=== PATIENT | male | born 1960 | race Caucasian/White ===

== ENCOUNTER 2016-09-21 01:54 | Emergency (ER) | payer MEDICARE, BC ==
[2016-09-21] MEDS ORDERED: Lidocaine 1% 20 ML MDV INJECT ONE (02:00)
--- NOTE | 2016-09-21 02:39 | EDM.PDOC ---
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 No Loc. No other acute medical issues. Onset: Today Onset Date: 09/21/16 Onset Time: 01:15 Duration: Hour(s): Location: Reports: Face Quality: Reports: Ache Severity: Mild Improves with: Reports: Rest Worsens with: Reports: Movement Context: Reports: Trauma Associated Symptoms: Reports: No Other Symptoms R parietal head Pain Score (Numeric/FACES): 4 - Related Data Allergies Allergy/AdvReac Type Severity Reaction Status Date / Time No Known Allergies Allergy Verified 04/13/16 15:13 Home Meds: Home Meds Albuterol Sulfate [Proair Hfa] 8.5 gm IH ASDIRECTED 05/22/13 [History] Celecoxib [CeleBREX] 200 mg PO BID 05/22/13 [History] Cetirizine HCl [Zyrtec] 10 mg PO DAILY 05/22/13 [History] Cholecalciferol (Vitamin D3) [Vitamin D3] 2,000 unit PO DAILY 05/22/13 [History] Cyclobenzaprine HCl 10 mg PO TID PRN 05/22/13 [History] Fluticasone Propionate [Flonase] 2 sprays NS ASDIRECTED 05/22/13 [History] Furosemide [Lasix] 20 mg PO ASDIRECTED PRN 05/22/13 [History] Hydrocodone/Acetaminophen [Lortab 10-500] 1 each PO BID PRN 05/22/13 [History] Multivitamin [Multivitamins] 1 cap PO DAILY 05/22/13 [History] Omeprazole [Prilosec] 20 mg PO DAILY 05/22/13 [History] Oxybutynin [Oxybutynin ER] 5 mg PO BID 05/22/13 [History] PARoxetine [Paxil] 60 mg PO DAILY 05/22/13 [History] Potassium Chloride 10 meq PO DAILY 05/22/13 [History] Pramipexole [Mirapex] 1 mg PO BID 05/22/13 [History] Simvastatin [Zocor] 20 mg PO BEDTIME 05/22/13 [History] Tamsulosin [Flomax] 0.4 mg PO ASDIRECTED 05/22/13 [History] clonazePAM [Klonopin] 0.5 mg PO DAILY 05/22/13 [History] cycloSPORINE [Restasis] 1 each OP DAILY 05/22/13 [History] Meloxicam [Mobic] 15 mg PO DAILY 05/25/13 [History] hydrOXYzine HCl [hydrOXYzine] 50 mg PO BID 05/25/13 [History] Gabapentin [Neurontin] 300 mg PO TID 02/14/16 [History] metFORMIN [Glucophage XR] 500 mg PO BIDMEALS 02/14/16 [History] Doxepin [SINEquan] 50 mg PO BEDTIME 04/13/16 [History] Past Medical History HEENT History: Reports: Allergic Rhinitis, Hard of Hearing, Impaired Vision, Other (See Below) Cardiovascular History: Reports: High Cholesterol Respiratory History: Reports: Sleep Apnea Other Respiratory History: MACHINE NOT WITH Gastrointestinal History: Reports: Irritable Bowel Syndrome Genitourinary History: Reports: Renal Calculus, Other (See Below) Other Genitourinary History: STATES URINARY FREQUENCY, BUT NOT DX WITH PROSTATE PROBLEMS. MEDICATES FOR THIS. 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 LOSS. Hematologic History: Reports: None Oncologic (Cancer) History: Reports: None Dermatologic History: Reports: Venous Stasis Dermatitis - Infectious Disease History Infectious Disease History: Reports: Chicken Pox, Measles, Mumps - Past Surgical History Female Surgical History: Male Surgical History: Social & Family History - Family History Family Medical History: Noncontributory - Tobacco Use Smoking Status *Q: Never Smoker Second Hand Smoke Exposure: No - Alcohol Use Days Per Week of Alcohol Use: 0 - Recreational Drug Use Recreational Drug Use: No ED ROS GENERAL - Review of Systems Review Of Systems: See Below Constitutional: Reports: No Symptoms HEENT: Reports: No Symptoms Respiratory: Reports: No Symptoms Cardiovascular: Reports: No Symptoms Endocrine: Reports: No Symptoms GI/Abdominal: Reports: No Symptoms : Reports: No Symptoms Musculoskeletal: Reports: No Symptoms Skin: Reports: Wound Neurological: Reports: No Symptoms Psychiatric: Reports: No Symptoms Hematologic/Lymphatic: Reports: No Symptoms Immunologic: Reports: No Symptoms ED EXAM, SKIN/RASH Exam: See Below Exam Limited By: No Limitations General Appearance: Alert, WD/WN, Mild Distress Eye Exam: Bilateral Eye: Normal Inspection Ears: Normal External Exam, Normal Canal Nose: Normal Inspection, Normal Mucosa Throat/Mouth: Normal Inspection, Normal Lips Head: Atraumatic, Normocephalic Neck: Normal Inspection, Supple Respiratory/Chest: No Respiratory Distress Cardiovascular: Normal Peripheral Pulses, Regular Rate, Rhythm Peripheral Pulses: 2+: Radial (L), Radial (R) GI/Abdominal: Normal Bowel Sounds, Soft, Non-Tender (Male) Exam: Deferred Rectal (Males) Exam: Deferred Back Exam: Normal Inspection Extremities: Normal Inspection, Normal Range of Motion, Normal Capillary Refill Neurological: Alert, Oriented, CN II-XII Intact, Normal Cognition Psychiatric: Normal Affect, Normal Mood Skin: Warm, Dry, Normal Color, Other (LAC r forehead) Associated features: Warmth Lymphatic: No Adenopathy ED SKIN PROCEDURES - Laceration/Wound Repair Right Forehead Appearance: Subcutaneous, Linear, Clean Distal NVT: Neuro & Vascular Intact, No Tendon Injury Anesthetic Type: Local Local Anesthesia - Lidocaine (Xylocaine): 1% Plain Local Anesthetic Volume: 2cc Skin Prep: Providone-Iodine (Betadine) Saline Irrigation (cc's): 5 Suture Size: 4-0 # of Sutures: 3 Repaired with: Other (4/0 ethilon) Tetanus Status Addressed: Other (UTD) Complications: No Course - Vital Signs Text/Narrative:: 56 years old w m 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 No Loc. No other acute medical issues. PE: 2 cm LAC right ant forehead, no active bleed Procedure: Please see note above. Impression: Head laceration Tx: Wound repair, neosporine, Ice Reexam: Improved Plan: Home with instructions. Last Recorded V/S: Last Vital Signs Temp 36.7 C 09/21/16 01:54 Pulse 86 09/21/16 01:54 Resp 18 09/21/16 01:54 BP 143/74 H 09/21/16 01:54 Pulse Ox 98 09/21/16 01:54 Departure - Departure Time of Disposition: 02:34 Disposition: Home, Self-Care 01 Condition: Good Clinical Impression: Laceration - Discharge Information Instructions: Head Injury, Adult, [id number], Sutured Wound Care, Easy-to- Read Referrals: Brittney Wong, SOCIAL SECURITY BENEFITS INTERVIEWER [Primary Care Provider] - Forms: ED Department Discharge Additional Instructions: wound check in 2-3 days, neosporine ointment to wound twice daily for 5 days, Suture removal in 7 - 10 days, please come back to the ed if your symptoms get worse acutely.
[2016-09-21 03:14] VITALS: BP 139/74
== END 2016-09-21 02:54 | disposition home or self-care (01) ==
LOC: FB.ED 01:54
DX: S01.81XA Laceration without foreign body of other part of head, initial encounter (principal); F41.9 Anxiety disorder, unspecified; F32.9 Major depressive disorder, single episode, unspecified; M19.90 Unspecified osteoarthritis, unspecified site; E78.00 Pure hypercholesterolemia, unspecified; E66.9 Obesity, unspecified; Z68.41 Body mass index [BMI] 40.0-44.9, adult; Z79.899 Other long term (current) drug therapy; Z79.84 Long term (current) use of oral hypoglycemic drugs; Z87.442 Personal history of urinary calculi; W01.190A Fall on same level from slipping, tripping and stumbling with subsequent striking against furniture, initial encounter
CPT/HCPCS: 12011; 99282; 99283; A4217; 12001

== ENCOUNTER 2018-04-28 19:17 | Emergency (ER) | payer MEDICARE, MEDICAID ==
[2018-04-28] MEDS ORDERED: Ondansetron 4 MG/2 ML SDV IVPUSH ONE (19:26)
[2018-04-28] MEDS ORDERED: Aspirin 81 MG Tab.Chew PO ONE (19:28)
[2018-04-28] MEDS ORDERED: Sodium Chloride 0.9% 10 ML Syringe FLUSH PRN (19:42)
--- NOTE | 2018-04-28 19:44 | EDM.PDOC ---
ED HPI GENERAL MEDICAL PROBLEM - General Stated Complaint: CHEST PAIN Time Seen by Provider: 04/28/18 19:24 Source of Information: Reports: Patient, Family History Limitations: Reports: No Limitations - History of Present Illness INITIAL COMMENTS - FREE TEXT/NARRATIVE: 58 y.o.w.m with multiple medical issues, including HTN, came to the ed due to Chest pain off on in the past few days. No F/C,No trauma, No N./V/D or any other acute med issues. BP 123/56 RR 24 Puls oc 92% on RA, temp 38.1 Pulse 94 Onset Date: 04/25/18 Onset Time: 07:00 Duration: Day(s):, Getting Worse, Intermittent Location: Reports: Chest Quality: Reports: Ache, Dull, Same as Previous Episode Severity: Moderate Improves with: Reports: Rest Worsens with: Reports: Movement Context: Reports: Sick Contact Associated Symptoms: Reports: Chest Pain chest Pain Score (Numeric/FACES): 6 - Related Data Allergies Allergy/AdvReac Type Severity Reaction Status Date / Time No Known Allergies Allergy Verified 04/28/18 19:49 Home Meds: Home Meds Cetirizine HCl [Zyrtec] 10 mg PO DAILY 05/22/13 [History] Cholecalciferol (Vitamin D3) [Vitamin D3] 2,000 unit PO DAILY 05/22/13 [History] Cyclobenzaprine HCl 10 mg PO BEDTIME 05/22/13 [History] Multivitamin [Multivitamins] 1 cap PO DAILY 05/22/13 [History] Omeprazole [Prilosec] 20 mg PO DAILY 05/22/13 [History] Potassium Chloride 10 meq PO DAILY 05/22/13 [History] Pramipexole [Mirapex] 1 mg PO DAILY 05/22/13 [History] Simvastatin [Zocor] 20 mg PO BEDTIME 05/22/13 [History] cycloSPORINE [Restasis] 1 each OP BID 05/22/13 [History] Gabapentin [Neurontin] 600 mg PO QID 02/14/16 [History] metFORMIN [Glucophage XR] 1,000 mg PO BIDMEALS 02/14/16 [History] Bumetanide [Bumex] 1 mg PO DAILY 09/21/16 [History] Acetaminophen [Acetaminophen Extra Strength] 1,000 mg PO TID PRN 04/28/18 [ History] Ciprofloxacin HCl [Cipro] 500 mg PO BID #20 tablet 04/28/18 [Rx] Diclofenac Sodium [Voltaren] 1 applic TOP QID PRN 04/28/18 [History] PARoxetine [Paxil] 40 mg PO DAILY 04/28/18 [History] Phentermine HCl [Adipex-P] 37.5 mg PO DAILY 04/28/18 [History] Past Medical History HEENT History: Reports: Allergic Rhinitis, Hard of Hearing, Impaired Vision, Other (See Below) Cardiovascular History: Reports: High Cholesterol Respiratory History: Reports: Sleep Apnea Other Respiratory History: MACHINE NOT WITH Gastrointestinal History: Reports: Irritable Bowel Syndrome Genitourinary History: Reports: Renal Calculus, Other (See Below) Other Genitourinary History: STATES URINARY FREQUENCY, BUT NOT DX WITH PROSTATE PROBLEMS. MEDICATES FOR THIS. STATES PASSED STONES WITHOUT SURGERY TIE IN HAND History: Reports: None Musculoskeletal History: Reports: Arthritis, Back Pain, Chronic Psychiatric History: Reports: Anxiety, Depression Endocrine/Metabolic History: Reports: Obesity/BMI 30+ Other Endocrine/Metabolic History: DENIES HAVING DIABETES, BUT USES METFORMIN FOR WT. LOSS. Hematologic History: Reports: None Oncologic (Cancer) History: Reports: None Dermatologic History: Reports: Venous Stasis Dermatitis - Infectious Disease History Infectious Disease History: Reports: Chicken Pox, Measles, Mumps - Past Surgical History Head Surgeries/Procedures: Reports: None Social & Family History - Family History Family Medical History: Noncontributory - Caffeine Use Caffeine Use: Reports: None ED ROS GENERAL - Review of Systems Review Of Systems: See Below Constitutional: Reports: No Symptoms HEENT: Reports: No Symptoms Respiratory: Reports: No Symptoms Cardiovascular: Reports: Chest Pain Endocrine: Reports: No Symptoms GI/Abdominal: Reports: No Symptoms : Reports: Dysuria Musculoskeletal: Reports: No Symptoms Skin: Reports: No Symptoms Neurological: Reports: No Symptoms Psychiatric: Reports: No Symptoms Hematologic/Lymphatic: Reports: No Symptoms Immunologic: Reports: No Symptoms ED EXAM, GENERAL - Physical Exam Exam: See Below Exam Limited By: No Limitations General Appearance: Alert, WD/WN, Mild Distress, Moderate Distress, Obese Eye Exam: Bilateral Eye: Normal Inspection Ears: Normal External Exam Ear Exam: Bilateral Ear: Auricle Normal Nose: Normal Inspection, Normal Mucosa, No Blood Throat/Mouth: Normal Lips, Normal Voice, No Airway Compromise Head: Atraumatic, Normocephalic Neck: Normal Inspection, Supple, Non-Tender, Full Range of Motion Respiratory/Chest: No Respiratory Distress, Lungs Clear, Normal Breath Sounds, Chest Non-Tender Cardiovascular: Normal Peripheral Pulses, Regular Rate, Rhythm, No Edema, No Gallop Peripheral Pulses: 1+: Brachial (L) GI/Abdominal: Normal Bowel Sounds, Soft, Non-Tender, No Organomegaly, No Abnormal Bruit, No Mass, Pelvis Stable (Male) Exam: Deferred Rectal (Males) Exam: Deferred Back Exam: Normal Inspection, Full Range of Motion Extremities: Normal Inspection, Normal Range of Motion, Non-Tender Neurological: Alert, Oriented, CN II-XII Intact, Normal Cognition, Normal Gait Psychiatric: Normal Affect, Normal Mood Skin Exam: Warm, Dry, Intact, Normal Color, No Rash Lymphatic: No Adenopathy EKG INTERPRETATION EKG Date: 04/28/18 Time: 19:25 Rhythm: NSR Rate (Beats/Min): 93 Hunt: Normal P-Wave: Present QRS: Normal ST-T: Normal QT: Normal EKG Interpretation Comments: MI 204 prolonged Course - Vital Signs Text/Narrative:: 58 y.o.w.m with multiple medical issues, including HTN, came to the ed due to Chest pain off on in the past few days. No F/C,No trauma, No N./V/D or any other acute med issues. BP 123/56 RR 24 Puls oc 92% on RA, temp 38.1 Pulse 94 PE: Obese 58 y.o.w.m with chest pain Imaging: CXR: NAD. Angio CT: NO PE, suboptimal study. Labs: CBC nl BMP Nl except D Dimer was O.74 Impression: Atypical chest pain, UTI, Tx: ASA, Cipro, Zofran Reexam: Pt is pain free. Pt was given th e option toe be admitted. He requested to be discharged with F/U in am with his PMD Plan: D/C with instructions Last Recorded V/S: Last Vital Signs Temp 38.1 C 04/28/18 19:20 Pulse Resp 26 H 04/28/18 22:00 BP 125/61 04/28/18 22:00 Pulse Ox 95 04/28/18 22:00 - Orders/Labs/Meds Orders: Active Orders 24 hr Category Date Time Status EKG Documentation Completion [RC] ASDIRECTED Care 04/28/18 20:17 Active Ang Chest [CT] Stat Exams 04/28/18 20:25 Taken Chest 1V Frontal [CR] Stat Exams 04/28/18 19:26 Taken Peripheral IV Insertion Adult [OM.PC] Routine Oth 04/28/18 19:30 Ordered EKG 12 Lead [EK] Routine Ther 04/28/18 20:17 Ordered Labs: Laboratory Tests 04/28/18 04/28/18 04/28/18 Range/Units 19:35 19:35 19:35 WBC 8.8 (4.5-12.0) X10-3/uL RBC 4.43 (4.30-5.75) x10(6)uL Hgb 13.8 (11.5-15.5) g/dL Hct 41.7 (30.0-51.3) % MCV 94.2 (80-96) fL MCH 31.2 (27.7-33.6) pg MCHC 33.1 (32.2-35.4) g/dL RDW 14.7 (11.5-15.5) % Plt Count 264 (125-369) X10(3)uL MPV 8.7 (7.4-10.4) fL Neut % (Auto) 80.4 (46-82) % Lymph % (Auto) 11.5 L (13-37) % [place] % (Auto) 6.7 (4-12) % Eos % (Auto) 1 (1.0-5.0) % Baso % (Auto) 1 (0-2) % Neut # (Auto) 7.0 (1.6-8.3) # Lymph # (Auto) 1.0 (0.6-5.0) # [place] # (Auto) 0.6 (0.0-1.3) # Eos # (Auto) 0.1 (0.0-0.8) # Baso # (Auto) 0.1 (0.0-0.2) # PT (8.7-11.1) INR (0.89-1.13) D-Dimer, Quantitative (0.0-0.59) mg/LFEU Sodium 138 (135-145) mmol/L Potassium 4.0 (3.5-5.3) mmol/L Chloride 102 (100-110) mmol/L Carbon Dioxide 31 (21-32) mmol/L BUN 18 (7-18) mg/dL Creatinine 1.2 (0.70-1.30) mg/dL Est Cr Clr Drug Dosing TNP Estimated GFR (MDRD) > 60 (>60) BUN/Creatinine Ratio 15.0 (9-20) Glucose 114 (80-116) mg/dL Calcium 9.6 (8.6-10.2) mg/dL Total Bilirubin (0.1-1.3) mg/dL Direct Bilirubin (0.10-0.20) mg/dL AST (5-25) IU/L ALT (12-36) U/L Alkaline Phosphatase (56-112) IU/L Troponin I < 0.017 L (<0.017-0.056) ng/mL Total Protein (6.0-8.0) g/dL Albumin (3.5-5.2) g/dL Amylase (25-115) U/L Urine Color (YELLOW) Urine Appearance (CLEAR) Urine pH (5.0-6.5) Ur Specific [place] (1.010-1.025) Urine Protein (NEGATIVE) mg/dL Urine Glucose (UA) (NEGATIVE) mg/dL Urine Ketones (NEGATIVE) mg/dL Urine Occult Blood (NEGATIVE) Urine Nitrite (NEGATIVE) Urine Bilirubin (NEGATIVE) Urine Urobilinogen (NEGATIVE) mg/dL Ur Leukocyte Esterase (NEGATIVE) Urine RBC (0) Urine WBC (0) Ur Squamous Epith Cells (NS,R,O) Urine Bacteria (NS) 04/28/18 04/28/18 04/28/18 Range/Units 19:35 19:35 20:16 WBC (4.5-12.0) X10-3/uL RBC (4.30-5.75) x10(6)uL Hgb (11.5-15.5) g/dL Hct (30.0-51.3) % MCV (80-96) fL MCH (27.7-33.6) pg MCHC (32.2-35.4) g/dL RDW (11.5-15.5) % Plt Count (125-369) X10(3)uL MPV (7.4-10.4) fL Neut % (Auto) (46-82) % Lymph % (Auto) (13-37) % [place] % (Auto) (4-12) % Eos % (Auto) (1.0-5.0) % Baso % (Auto) (0-2) % Neut # (Auto) (1.6-8.3) # Lymph # (Auto) (0.6-5.0) # [place] # (Auto) (0.0-1.3) # Eos # (Auto) (0.0-0.8) # Baso # (Auto) (0.0-0.2) # PT 9.6 (8.7-11.1) INR 0.99 (0.89-1.13) D-Dimer, Quantitative 0.74 H (0.0-0.59) mg/LFEU Sodium (135-145) mmol/L Potassium (3.5-5.3) mmol/L Chloride (100-110) mmol/L Carbon Dioxide (21-32) mmol/L BUN (7-18) mg/dL Creatinine (0.70-1.30) mg/dL Est Cr Clr Drug Dosing Estimated GFR (MDRD) (>60) BUN/Creatinine Ratio (9-20) Glucose (80-116) mg/dL Calcium (8.6-10.2) mg/dL Total Bilirubin 1.1 (0.1-1.3) mg/dL Direct Bilirubin 0.41 H (0.10-0.20) mg/dL AST 23 (5-25) IU/L ALT 31 (12-36) U/L Alkaline Phosphatase 101 (56-112) IU/L Troponin I (<0.017-0.056) ng/mL Total Protein 8.2 H (6.0-8.0) g/dL Albumin 3.4 L (3.5-5.2) g/dL Amylase 35 (25-115) U/L Urine Color Yellow (YELLOW) Urine Appearance Cloudy (CLEAR) Urine pH 7.0 H (5.0-6.5) Ur Specific [place] 1.010 (1.010-1.025) Urine Protein Negative (NEGATIVE) mg/dL Urine Glucose (UA) Normal (NEGATIVE) mg/dL Urine Ketones Negative (NEGATIVE) mg/dL Urine Occult Blood Negative (NEGATIVE) Urine Nitrite Positive H (NEGATIVE) Urine Bilirubin Small H (NEGATIVE) Urine Urobilinogen >=12 H (NEGATIVE) mg/dL Ur Leukocyte Esterase Large H (NEGATIVE) Urine RBC 10-20 H (0) Urine WBC 30-40 H (0) Ur Squamous Epith Cells Occasional (NS,R,O) Urine Bacteria Many H (NS) Meds: Medications Discontinued Medications Generic Name Dose Route Start Last Admin Trade Name Freq PRN Reason Stop Dose Admin Aspirin 324 mg 04/28/18 19:28 04/28/18 19:35 Aspirin PO 04/28/18 19:29 324 mg ONETIME ONE Administration Ciprofloxacin 500 mg 04/28/18 22:26 04/28/18 22:32 Ciprofloxacin Hcl PO 04/28/18 22:27 500 mg ONETIME ONE Administration Iopamidol 100 ml 04/28/18 21:11 04/28/18 21:30 Isovue-370 (76%) IV 04/28/18 21:12 83 ml . DIRECTED ONE Administration Ondansetron HCl 8 mg 04/28/18 19:26 04/28/18 19:42 Zofran IVPUSH 04/28/18 19:27 8 mg ONETIME ONE Administration Sodium Chloride 10 ml 04/28/18 19:42 Saline Flush FLUSH ASDIRECTED PRN Keep Vein Open Departure - Departure Time of Disposition: 22:41 Disposition: Home, Self-Care 01 Condition: Good Clinical Impression: Atypical chest pain, UTI (urinary tract infection) Prescriptions: Ciprofloxacin HCl [Cipro] 500 mg PO BID #20 tablet Instructions: Urinary Tract Infection, Adult Referrals: Brittney Wong, OUTDOOR LANDSCAPE ARCHITECT [Primary Care Provider] - Forms: ED Department Discharge, ED Return to Work/School Form Additional Instructions: Please take Aspirin daily, please f/u with your Primary care doctor in am, come back if your symptoms get worse acutely - My Orders Last 24 Hours: My Active Orders 04/28/18 19:26 Chest 1V Frontal [CR] Stat 04/28/18 19:30 Peripheral IV Insertion Adult [OM.PC] Routine 04/28/18 20:17 EKG Documentation Completion [RC] ASDIRECTED EKG 12 Lead [EK] Routine 04/28/18 20:25 Ang Chest [CT] Stat - Assessment/Plan Last 24 Hours: My Active Orders 04/28/18 19:26 Chest 1V Frontal [CR] Stat 04/28/18 19:30 Peripheral IV Insertion Adult [OM.PC] Routine 04/28/18 20:17 EKG Documentation Completion [RC] ASDIRECTED EKG 12 Lead [EK] Routine 04/28/18 20:25 Ang Chest [CT] Stat
[2018-04-28] MEDS ORDERED: Iopamidol 755 Mg/ML 100 ML Bottle IV ONE (21:11)
[2018-04-28] MEDS ORDERED: Ciprofloxacin 500 MG Tab PO ONE (22:26)
[2018-04-28 23:37] VITALS: BP 125/61
--- NOTE | 2018-04-29 11:45 | CR ---
INDICATION: Chest pain. CHEST: An AP portable upright view of the chest was obtained 04/28/18 and compared with a internal revenue service agent view from CT of the chest of 08/24/09. Overlying EKG leads are noted. The aorta is slightly tortuous. The heart appears prominent but is not grossly enlarged. A definite active infiltrate or effusion was not identified. However, pulmonary vasculature appears slightly prominent in the upper lung ponce, raising question of pulmonary vascular congestion. This should be correlate clinically, as fluid overload, renal failure, or acute myocardial event could be present. There is evidence of exogenous obesity. IMPRESSION: 1. No definite acute process but difficult to exclude pulmonary vascular congestion. 2. Minimal ASD aorta. 3. Exogenous obesity. MTDD
== END 2018-04-28 22:40 | disposition home or self-care (01) ==
LOC: FB.ED 19:17
DX: R07.89 Other chest pain (principal); N39.0 Urinary tract infection, site not specified; E78.00 Pure hypercholesterolemia, unspecified; F41.9 Anxiety disorder, unspecified; F32.9 Major depressive disorder, single episode, unspecified; Z79.899 Other long term (current) drug therapy
CPT/HCPCS: 36415; 71045; 71275; 80048; 80076; 81001; 82150; 84484; 85025; 85379; 85610; 93005; 93010; 99285; A9270; J2405; Q9967

== ENCOUNTER 2018-09-15 18:14 | Emergency (ER) | payer MEDICARE, MEDICAID ==
[2018-09-15] MEDS ORDERED: Diphtheria,Pertussis(Acell),Tetanus Vaccine 0.5 ML SDV IM ONE (18:51)
--- NOTE | 2018-09-15 19:01 | EDM.PDOC ---
ED HPI GENERAL MEDICAL PROBLEM - General Chief Complaint: Lower Extremity Injury/Pain Stated Complaint: PUNCTURED FOOT W/NAIL Time Seen by Provider: 09/15/18 18:30 Source of Information: Reports: Patient History Limitations: Reports: No Limitations - History of Present Illness INITIAL COMMENTS - FREE TEXT/NARRATIVE: 58-year-old male who and been cutting his grass and the weeds around his yard and was walking around the edge of the yard and hit his left lateral lower leg against a nail causing an injury to his left lateral lower leg. He reports that there was bleeding from the wound that he found difficult to control. There was very minimal pain in the area. He reports a mild stinging that he rates as a 1-2 /10. This occurred approximate 6 PM tonight and he was brought here from home via private vehicle. The bleeding has been controlled with direct pressure. There were no other injuries. He is having no problems ambulating. There are no other associated signs or symptoms. There are no other modifying factors. 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) (Nothing) - Related Data Allergies Allergy/AdvReac Type Severity Reaction Status Date / Time No Known Allergies Allergy Verified 09/15/18 18:39 Home Meds: Home Meds Cetirizine HCl [Zyrtec] 10 mg PO DAILY 05/22/13 [History] Cholecalciferol (Vitamin D3) [Vitamin D3] 2,000 unit PO DAILY 05/22/13 [History] Cyclobenzaprine HCl 10 mg PO BEDTIME 05/22/13 [History] Multivitamin [Multivitamins] 1 cap PO DAILY 05/22/13 [History] Omeprazole [Prilosec] 20 mg PO DAILY 05/22/13 [History] Potassium Chloride 10 meq PO DAILY 05/22/13 [History] Pramipexole [Mirapex] 1 mg PO DAILY 05/22/13 [History] Simvastatin [Zocor] 20 mg PO BEDTIME 05/22/13 [History] cycloSPORINE [Restasis] 1 each OP BID 05/22/13 [History] Gabapentin [Neurontin] 600 mg PO QID 02/14/16 [History] metFORMIN [Glucophage XR] 1,000 mg PO BIDMEALS 02/14/16 [History] Bumetanide [Bumex] 1 mg PO DAILY 09/21/16 [History] Acetaminophen [Acetaminophen Extra Strength] 1,000 mg PO TID PRN 04/28/18 [ History] Ciprofloxacin HCl [Cipro] 500 mg PO BID #20 tablet 04/28/18 [Rx] Diclofenac Sodium [Voltaren] 1 applic TOP QID PRN 04/28/18 [History] PARoxetine [Paxil] 40 mg PO DAILY 04/28/18 [History] Phentermine HCl [Adipex-P] 37.5 mg PO DAILY 04/28/18 [History] Past Medical History HEENT History: Reports: Allergic Rhinitis, Hard of Hearing, Impaired Vision Cardiovascular History: Reports: High Cholesterol Respiratory History: Reports: Sleep Apnea Gastrointestinal History: Reports: Irritable Bowel Syndrome Genitourinary History: Reports: Renal Calculus Musculoskeletal History: Reports: Arthritis, Back Pain, Chronic Psychiatric History: Reports: Anxiety, Depression Endocrine/Metabolic History: Reports: Obesity/BMI 30+ Dermatologic History: Reports: Venous Stasis Dermatitis - Infectious Disease History Infectious Disease History: Reports: Chicken Pox, Measles, Mumps - Past Surgical History GI Surgical History: Reports: Cholecystectomy, Hernia Repair/Other Neurological Surgical History: Reports: Lumbar Spine Musculoskeletal Surgical History: Reports: Arthroscopic Knee (Left knee arthroscopy 2), Carpal Tunnel (Bilateral carpal tunnel releases), Other (See Below) (Right foot surgery 2) Social & Family History - Tobacco Use Smoking Status *Q: Never Smoker - Caffeine Use Caffeine Use: Reports: Soda - Alcohol Use Alcohol Use History: Yes Alcohol Use Frequency: Weekly - Recreational Drug Use Recreational Drug Use: No - Living Situation & Occupation Occupation: Employed (Works at the [employer].) Social History Comment: He is here with his children. Review of Systems - Review of Systems Review Of Systems: See Below Constitutional: Reports: No Symptoms Eyes: Reports: No Symptoms Ears: Reports: No Symptoms Nose: Reports: No Symptoms Mouth/Throat: Reports: No Symptoms Respiratory: Reports: No Symptoms Cardiovascular: Reports: No Symptoms GI/Abdominal: Reports: No Symptoms Genitourinary: Reports: No Symptoms Musculoskeletal: Reports: Other (Leg swelling that is chronic and symmetric) Skin: Reports: Wound (Abrasion and scratch on left lateral leg), Other (His last tetanus immunization was in 2010, so he is not up-to-date and will be given one today.) Neurological: Reports: No Symptoms ED EXAM, GENERAL - Physical Exam Exam: See Below Exam Limited By: No Limitations General Appearance: Alert, WD/WN, Anxious, Mild Distress Eye Exam: Bilateral Eye: EOMI, Normal Inspection, PERRL Ears: Normal External Exam Ear Exam: Bilateral Ear: Auricle Normal Nose: Normal Inspection, Normal Mucosa, No Blood Throat/Mouth: Normal Inspection, Normal Oropharynx, Normal Voice, No Airway Compromise Head: Atraumatic, Normocephalic Neck: Normal Inspection, Supple, Non-Tender, Full Range of Motion Respiratory/Chest: No Respiratory Distress, Lungs Clear, Normal Breath Sounds, No Accessory Muscle Use, Chest Non-Tender Cardiovascular: Normal Peripheral Pulses, Regular Rate, Rhythm, No JVD Peripheral Pulses: 2+: Radial (L), Radial (R), Dorsalis Pedis (L), Dorsalis Pedis (R) GI/Abdominal: Normal Bowel Sounds, Soft, Non-Tender, No Mass Back Exam: Normal Inspection Extremities: Normal Range of Motion, Non-Tender, Normal Capillary Refill, Other (Mild edema bilaterally, the patient reports this is chronic) Neurological: Alert, Oriented, CN II-XII Intact, Normal Cognition, No Motor/ Sensory Deficits Psychiatric: Anxious Skin Exam: Warm, Dry, Normal Color, No Rash, Wound/Incision (Superficial scratch /abrasion to left lateral leg that is 7 cm in length. Nothing suturable.) Course - Vital Signs Last Recorded V/S: Last Vital Signs Temp 36.6 C 09/15/18 19:13 Pulse 86 09/15/18 19:13 Resp 15 09/15/18 19:13 BP 122/70 09/15/18 19:13 Pulse Ox 95 09/15/18 19:13 - Orders/Labs/Meds Orders: Active Orders 24 hr Category Date Time Status Vaccines to be Administered [RC] PER UNIT ROUTINE Care 09/15/18 18:53 Active Meds: Medications Discontinued Medications Generic Name Dose Route Start Last Admin Trade Name Freq PRN Reason Stop Dose Admin Diphtheria/Tetanus/Acell Pertussis 0.5 ml 09/15/18 18:51 09/15/18 18:59 Adacel IM 09/15/18 18:52 0.5 ml .ONCE ONE Administration - Re-Assessments/Exams Free Text/Narrative Re-Assessment/Exam: 09/15/18 18:50: The patient's wound was nonbleeding at presentation to the emergency department. It was cleaned and dressed by the nursing staff. He will need to shower and wash the wound again when he gets home and then apply bacitracin and a dressing to the wound. I have given him 2 days off of work so that he should stay at home and to stay off of his left leg as much as possible with the left leg elevated. Departure - Departure Time of Disposition: 19:00 Disposition: Home, Self-Care 01 Condition: Good (Stable) Clinical Impression: Abrasion, left lower leg, initial encounter - Discharge Information Instructions: Abrasion, [id number] Forms: ED Department Discharge, ED Return to Work/School Form Additional Instructions: Clean the wound on your leg with soap and water and apply bacitracin and a dressing until the wound has scabbed over. Try to off of your leg for the next few days with your left leg elevated higher than your heart level often. No work for the next 2 days. Back to the emergency department for marked increase in pain, redness, increasing swelling or any other concerning sign or symptom. You were given a Tdap Immunization today to bring your tetanus immunization status up-to-date. - My Orders Last 24 Hours: My Active Orders 09/15/18 18:53 Vaccines to be Administered [RC] PER UNIT ROUTINE - Assessment/Plan Last 24 Hours: My Active Orders 09/15/18 18:53 Vaccines to be Administered [RC] PER UNIT ROUTINE
[2018-09-15 19:14] VITALS: BP 122/70
== END 2018-09-15 19:15 | disposition home or self-care (01) ==
LOC: FB.ED 18:14
DX: S80.812A Abrasion, left lower leg, initial encounter (principal); E78.00 Pure hypercholesterolemia, unspecified; F41.9 Anxiety disorder, unspecified; F32.9 Major depressive disorder, single episode, unspecified; E66.9 Obesity, unspecified; Z23 Encounter for immunization; Z79.84 Long term (current) use of oral hypoglycemic drugs; W22.8XXA Striking against or struck by other objects, initial encounter; Z68.42 Body mass index [BMI] 45.0-49.9, adult
CPT/HCPCS: 90471; 90715; 99283

== ENCOUNTER 2019-07-29 15:10 | Emergency (ER) | payer MEDICARE, MEDICAID ==
[2019-07-29] MEDS ORDERED: Sodium Chloride 0.9% 10 ML Syringe FLUSH PRN (15:32)
[2019-07-29] MEDS ORDERED: Enoxaparin 100 MG/1 ML Syringe SUBCUT STA (16:48)
--- NOTE | 2019-07-29 16:49 | EDM.PDOC ---
ED HPI GENERAL MEDICAL PROBLEM - General Chief Complaint: General Stated Complaint: LEG AND BACK PAIN Time Seen by Provider: 07/29/19 15:40 Source of Information: Reports: Patient History Limitations: Reports: No Limitations - History of Present Illness INITIAL COMMENTS - FREE TEXT/NARRATIVE: Patient presented to the ED from the clinic due to dyspnea which started 3 weeks. He normally can walk up to 10 feet but now even with mild physical activity like getting up from a sitting position make him dyspneic. There is no associated chest pain,N/V, fever, or recent cough and cold. He also noticed that for the past 2 weeks he gained at lleast 20 lbs and his legs are feeling heavier. 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 Lower Posterior Back Pain Score (Numeric/FACES): 9 - Related Data Allergies Allergy/AdvReac Type Severity Reaction Status Date / Time pregabalin [From Lyrica] Allergy Fatigue Verified 07/29/19 15:18 Home Meds: Home Meds Cetirizine HCl [Zyrtec] 10 mg PO DAILY 05/22/13 [History] Cholecalciferol (Vitamin D3) [Vitamin D3] 2,000 unit PO DAILY 05/22/13 [History] Cyclobenzaprine HCl 10 mg PO BEDTIME 05/22/13 [History] Multivitamin [Multivitamins] 1 cap PO DAILY 05/22/13 [History] Omeprazole [Prilosec] 20 mg PO DAILY 05/22/13 [History] Potassium Chloride 10 meq PO DAILY 05/22/13 [History] Pramipexole [Mirapex] 1 mg PO DAILY 05/22/13 [History] Simvastatin [Zocor] 20 mg PO BEDTIME 05/22/13 [History] cycloSPORINE [Restasis] 1 each OP BID 05/22/13 [History] Gabapentin [Neurontin] 600 mg PO QID 02/14/16 [History] metFORMIN [Glucophage XR] 1,000 mg PO BIDMEALS 02/14/16 [History] Bumetanide [Bumex] 1 mg PO DAILY 09/21/16 [History] Acetaminophen [Acetaminophen Extra Strength] 1,000 mg PO TID PRN 04/28/18 [ History] Ciprofloxacin HCl [Cipro] 500 mg PO BID #20 tablet 04/28/18 [Rx] Diclofenac Sodium [Voltaren] 1 applic TOP QID PRN 04/28/18 [History] PARoxetine [Paxil] 40 mg PO DAILY 04/28/18 [History] Phentermine HCl [Adipex-P] 37.5 mg PO DAILY 04/28/18 [History] Past Medical History HEENT History: Reports: Allergic Rhinitis, Hard of Hearing, Impaired Vision Cardiovascular History: Reports: High Cholesterol Respiratory History: Reports: Sleep Apnea Other Respiratory History: MACHINE NOT WITH Gastrointestinal History: Reports: Irritable Bowel Syndrome Genitourinary History: Reports: Renal Calculus Other Genitourinary History: STATES URINARY FREQUENCY, BUT NOT DX WITH PROSTATE PROBLEMS. MEDICATES FOR THIS. 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 LOSS. Hematologic History: Reports: None Oncologic (Cancer) History: Reports: None Dermatologic History: Reports: Venous Stasis Dermatitis - Infectious Disease History Infectious Disease History: Reports: Chicken Pox, Measles, Mumps - Past Surgical History Head Surgeries/Procedures: Reports: None GI Surgical History: Reports: Cholecystectomy, Hernia Repair/Other Neurological Surgical History: Reports: Lumbar Spine Musculoskeletal Surgical History: Reports: Arthroscopic Knee, Carpal Tunnel, Other (See Below) Social & Family History - Family History Family Medical History: Noncontributory - Tobacco Use Smoking Status *Q: Never Smoker Second Hand Smoke Exposure: Yes - Caffeine Use Caffeine Use: Reports: None - Recreational Drug Use Recreational Drug Use: No - Living Situation & Occupation Occupation: Employed (Works at the [employer].) ED ROS GENERAL - Review of Systems Review Of Systems: See Below Constitutional: Reports: No Symptoms HEENT: Reports: No Symptoms Respiratory: Reports: Shortness of Breath Cardiovascular: Reports: No Symptoms Endocrine: Reports: No Symptoms GI/Abdominal: Reports: No Symptoms : Reports: No Symptoms Musculoskeletal: Reports: No Symptoms, Back Pain Skin: Reports: No Symptoms Neurological: Reports: No Symptoms Psychiatric: Reports: No Symptoms ED EXAM, GENERAL - Physical Exam Exam: See Below Exam Limited By: Intoxication General Appearance: Alert, No Apparent Distress Nose: Normal Inspection, Normal Mucosa Throat/Mouth: Normal Inspection, Normal Lips, Normal Teeth Head: Atraumatic, Normocephalic Neck: Normal Inspection, Supple, Non-Tender Respiratory/Chest: No Respiratory Distress, Lungs Clear, Normal Breath Sounds Cardiovascular: Normal Peripheral Pulses, Regular Rate, Rhythm, No Edema, No JVD , No Murmur GI/Abdominal: Normal Bowel Sounds, Soft, Non-Tender Back Exam: Normal Inspection, Full Range of Motion, Muscle Spasm, Paraspinal Tenderness Extremities: Normal Inspection, Pedal Edema Course - Vital Signs Text/Narrative:: Labs/EKG/CXR was discussed with patient and verbalized full understanding Increase bomex to 2 mg norman Bilateral LE Duplex US tomorrow Lovenox 250 mg SC x1 pending US result Last Recorded V/S: Last Vital Signs Temp 36.8 C 07/29/19 15:25 Pulse 87 07/29/19 15:25 Resp 18 07/29/19 15:25 BP 127/64 07/29/19 15:25 Pulse Ox 97 07/29/19 15:25 - Orders/Labs/Meds Orders: Active Orders 24 hr Category Date Time Status EKG Documentation Completion [RC] ASDIRECTED Care 07/29/19 15:34 Active Chest 2V [CR] Stat Exams 07/29/19 15:32 Taken VL Duplex Lwr Ext Veins Comp [US] Stat Exams 07/29/19 16:42 Ordered UA W/MICROSCOPIC [URIN] Stat Lab 07/29/19 15:32 Ordered Sodium Chloride 0.9% [Saline Flush] Med 07/29/19 15:32 Active 10 ml FLUSH ASDIRECTED PRN Saline Lock Insert [OM.PC] Routine Oth 07/29/19 15:32 Ordered EKG 12 Lead [EK] Routine Ther 07/29/19 15:32 Ordered Medication Orders Sodium Chloride (Saline Flush) 10 ml FLUSH ASDIRECTED PRN PRN Reason: Keep Vein Open Last Admin: 07/29/19 16:30 Dose: 10 ml Labs: Laboratory Tests 07/29/19 07/29/19 07/29/19 Range/Units 15:45 15:45 15:45 WBC 7.6 (4.5-12.0) X10-3/uL RBC 4.04 L (4.30-5.75) x10(6)uL Hgb 12.6 L (13.5-17.8) g/dL Hct 37.3 (30.0-51.3) % MCV 92.5 (80-96) fL MCH 31.3 (27.7-33.6) pg MCHC 33.8 (32.2-35.4) g/dL RDW 15.2 (11.5-15.5) % Plt Count 296 (125-369) X10(3)uL MPV 7.8 (7.4-10.4) fL Neut % (Auto) 74.4 (46-82) % Lymph % (Auto) 17.7 (13-37) % [place] % (Auto) 5.3 (4-12) % Eos % (Auto) 2 (1.0-5.0) % Baso % (Auto) 0 (0-2) % Neut # (Auto) 5.7 (1.6-8.3) # Lymph # (Auto) 1.3 (0.6-5.0) # [place] # (Auto) 0.4 (0.0-1.3) # Eos # (Auto) 0.2 (0.0-0.8) # Baso # (Auto) 0.0 (0.0-0.2) # Sodium 142 (135-145) mmol/L Potassium 4.2 (3.5-5.3) mmol/L Chloride 103 (100-110) mmol/L Carbon Dioxide 32 (21-32) mmol/L BUN 23 H (7-18) mg/dL Creatinine 1.2 (0.70-1.30) mg/dL Est Cr Clr Drug Dosing 78.01 mL/min Estimated GFR (MDRD) > 60 (>60) BUN/Creatinine Ratio 19.2 (9-20) Glucose 101 (80-116) mg/dL Calcium 9.8 (8.6-10.2) mg/dL Total Bilirubin 0.5 (0.1-1.3) mg/dL AST 24 (5-25) IU/L ALT 31 (12-36) U/L Alkaline Phosphatase 114 H (56-112) IU/L Troponin I 22.7 (4.0-60.3) pg/mL NT-Pro-B Natriuret Pep 83 (<=125) pg/mL Total Protein 8.1 H (6.0-8.0) g/dL Albumin 3.6 (3.5-5.2) g/dL Globulin 4.5 g/dL Albumin/Globulin Ratio 0.8 Meds: Medications Generic Name Dose Route Start Last Admin Trade Name Freq PRN Reason Stop Dose Admin Sodium Chloride 10 ml 07/29/19 15:32 07/29/19 16:30 Saline Flush FLUSH 10 ml ASDIRECTED PRN Administration Keep Vein Open Discontinued Medications Generic Name Dose Route Start Last Admin Trade Name Norma PRN Reason Stop Dose Admin Enoxaparin Sodium 250 mg 07/29/19 16:48 Lovenox SUBCUT 07/29/19 16:49 NOW STA Departure - Departure Time of Disposition: 16:50 Disposition: Home, Self-Care 01 Condition: Good Clinical Impression: Peripheral edema - Discharge Information Instructions: Edema, [id number] Referrals: Brittney Wong, BULKING MACHINE OPERATOR [Primary Care Provider] - Forms: ED Department Discharge Additional Instructions: Please read discharge instructions on peripheral edema Take your bumex 2 mg daily Return to the Radiology Department tomorrow @ 1 pm for the ultrasound of both lower extremities for a possible blood clot Sepsis Event Note - Evaluation Sepsis Screening Result: No Definite Risk - Focused Exam Vital Signs: Vital Signs Temp Pulse Resp BP Pulse Ox 07/29/19 15:25 36.8 C 87 18 127/64 97 Date Exam was Performed: 07/29/19 Time Exam was Performed: 17:10 - My Orders Last 24 Hours: My Active Orders 07/29/19 15:32 Chest 2V [CR] Stat UA W/MICROSCOPIC [URIN] Stat Sodium Chloride 0.9% [Saline Flush] 10 ml FLUSH ASDIRECTED PRN Saline Lock Insert [OM.PC] Routine EKG 12 Lead [EK] Routine 07/29/19 15:34 EKG Documentation Completion [RC] ASDIRECTED 07/29/19 16:42 VL Duplex Lwr Ext Veins Comp [US] Stat - Assessment/Plan Last 24 Hours: My Active Orders 07/29/19 15:32 Chest 2V [CR] Stat UA W/MICROSCOPIC [URIN] Stat Sodium Chloride 0.9% [Saline Flush] 10 ml FLUSH ASDIRECTED PRN Saline Lock Insert [OM.PC] Routine EKG 12 Lead [EK] Routine 07/29/19 15:34 EKG Documentation Completion [RC] ASDIRECTED 07/29/19 16:42 VL Duplex Lwr Ext Veins Comp [US] Stat
[2019-07-29 18:58] VITALS: BP 129/63; PULSE 84
== END 2019-07-29 17:00 | disposition home or self-care (01) ==
LOC: FB.ED 15:10
DX: R60.0 Localized edema (principal); E78.00 Pure hypercholesterolemia, unspecified; F41.9 Anxiety disorder, unspecified; F32.9 Major depressive disorder, single episode, unspecified; E66.9 Obesity, unspecified; Z68.42 Body mass index [BMI] 45.0-49.9, adult; Z88.8 Allergy status to other drugs, medicaments and biological substances; Z79.899 Other long term (current) drug therapy
CPT/HCPCS: 36415; 71046; 80053; 83880; 84484; 85025; 93005; 99285; J1650

== ENCOUNTER 2019-09-13 10:50 | Emergency (ER) | payer MEDICARE, MEDICAID ==
[2019-09-13 11:05] VITALS: BP 139/58; PULSE 73
[2019-09-13] MEDS ORDERED: Bacitracin Oint 1 GM U/D Packet TOP ONE (11:21)
--- NOTE | 2019-09-13 11:27 | EDM.PDOC ---
ED HPI GENERAL MEDICAL PROBLEM - General Chief Complaint: General Stated Complaint: BLEEDING LT LEG Time Seen by Provider: 09/13/19 11:22 Source of Information: Reports: Patient, Old Records, RN History Limitations: Reports: No Limitations - History of Present Illness INITIAL COMMENTS - FREE TEXT/NARRATIVE: 59 yo male with chronic LE edema and varicosities presents after a bleed to the medial L calf from a varicosity. Was attempting a shower at onset. Had a lot of bleeding at home, but bleeding is controlled on arrival. States that his tetanus status is UTD. Onset: Today, Sudden Onset Date: 09/13/19 Duration: Minutes: Location: Reports: Lower Extremity, Left Quality: Reports: Other (no new pain) Severity: Moderate Improves with: Reports: Other (Leg elevation) Worsens with: Reports: Other (leg in dependent position. 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 (see below) (Elevation and pressure) - Related Data Allergies Allergy/AdvReac Type Severity Reaction Status Date / Time pregabalin [From Lyrica] Allergy Fatigue Verified 07/29/19 15:18 Home Meds: Home Meds Cetirizine HCl [Zyrtec] 10 mg PO DAILY 05/22/13 [History] Cholecalciferol (Vitamin D3) [Vitamin D3] 2,000 unit PO DAILY 05/22/13 [History] Cyclobenzaprine HCl 10 mg PO BEDTIME 05/22/13 [History] Multivitamin [Multivitamins] 1 cap PO DAILY 05/22/13 [History] Omeprazole [Prilosec] 20 mg PO DAILY 05/22/13 [History] Potassium Chloride 10 meq PO DAILY 05/22/13 [History] Pramipexole [Mirapex] 1 mg PO DAILY 05/22/13 [History] Simvastatin [Zocor] 20 mg PO BEDTIME 05/22/13 [History] cycloSPORINE [Restasis] 1 each OP BID 05/22/13 [History] Gabapentin [Neurontin] 600 mg PO QID 02/14/16 [History] metFORMIN [Glucophage XR] 1,000 mg PO BIDMEALS 02/14/16 [History] Bumetanide [Bumex] 1 mg PO DAILY 09/21/16 [History] Acetaminophen [Acetaminophen Extra Strength] 1,000 mg PO TID PRN 04/28/18 [History] Ciprofloxacin HCl [Cipro] 500 mg PO BID #20 tablet 04/28/18 [Rx] Diclofenac Sodium [Voltaren] 1 applic TOP QID PRN 04/28/18 [History] PARoxetine [Paxil] 40 mg PO DAILY 04/28/18 [History] Phentermine HCl [Adipex-P] 37.5 mg PO DAILY 04/28/18 [History] Past Medical History HEENT History: Reports: Allergic Rhinitis, Hard of Hearing, Impaired Vision Cardiovascular History: Reports: High Cholesterol Respiratory History: Reports: Sleep Apnea Other Respiratory History: MACHINE NOT WITH Gastrointestinal History: Reports: Irritable Bowel Syndrome Genitourinary History: Reports: Renal Calculus Other Genitourinary History: STATES URINARY FREQUENCY, BUT NOT DX WITH PROSTATE PROBLEMS. MEDICATES FOR THIS. 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 LOSS. Hematologic History: Reports: None Oncologic (Cancer) History: Reports: None Dermatologic History: Reports: Venous Stasis Dermatitis - Infectious Disease History Infectious Disease History: Reports: Chicken Pox, Measles, Mumps - Past Surgical History Head Surgeries/Procedures: Reports: None GI Surgical History: Reports: Cholecystectomy, Hernia Repair/Other Neurological Surgical History: Reports: Lumbar Spine Musculoskeletal Surgical History: Reports: Arthroscopic Knee, Carpal Tunnel, Other (See Below) Social & Family History - Family History Family Medical History: Noncontributory - Tobacco Use Smoking Status *Q: Never Smoker - Caffeine Use Caffeine Use: Reports: None - Living Situation & Occupation Occupation: Employed (Works at the [employer].) ED ROS GENERAL - Review of Systems Review Of Systems: See Below Constitutional: Reports: No Symptoms Musculoskeletal: Reports: Other (chronic swelling both legs) Skin: Reports: Wound (Recent bleeding varicose vein to the L medial calf. ) Neurological: Reports: No Symptoms ED EXAM, GENERAL - Physical Exam Exam: See Below Exam Limited By: No Limitations General Appearance: Alert, WD/WN, No Apparent Distress, Obese Extremities: Pedal Edema (both legs below the knees). No: Limited Range of Motion, Increased Warmth, Redness Neurological: Alert, Oriented, CN II-XII Intact, No Motor/Sensory Deficits Psychiatric: Normal Affect, Normal Mood Skin Exam: Warm, Dry, Normal Color, No Rash, Wound/Incision (small wound to medial L calf from a varicose vein. Bleeding controlled on arrival. ) Course - Vital Signs Text/Narrative:: Wound cleaned by RN. Bacitracin and a pressure dressing applied. Paient was given the option of applying a purse-string suture to wound. Opted not to choose this. Last Recorded V/S: Last Vital Signs Temp 36.5 C 09/13/19 10:50 Pulse 73 09/13/19 10:50 Resp 18 09/13/19 10:50 BP 139/58 L 09/13/19 10:50 Pulse Ox 18 L 09/13/19 10:50 - Orders/Labs/Meds Orders: Active Orders 24 hr Category Date Time Status Bacitracin [Bacitracin Oint 1 GM] Med 09/13/19 11:21 Once 1 dose TOP ONETIME ONE Departure - Departure Time of Disposition: 11:29 Disposition: Home, Self-Care 01 Condition: Good Clinical Impression: Bleeding from varicose vein - Discharge Information *PRESCRIPTION DRUG MONITORING PROGRAM REVIEWED*: No *COPY OF PRESCRIPTION DRUG MONITORING REPORT IN PATIENT DAVID: No Instructions: Bleeding Varicose Veins Referrals: Brittney Wong, CONTRACT SERVICEMAN [Primary Care Provider] - Additional Instructions: Leave the current dressing on for 24-32 hrs. Keep leg elevated above your heart today. If bleeding resumes, then elevate that leg and apply direct pressure to control. Follow up here or with your doctor as needed. Consider using support stockings to reduce the swelling in your legs and the risk of future bleeding. Sepsis Event Note (ED) - Evaluation Sepsis Screening Result: No Definite Risk - Focused Exam Vital Signs: Vital Signs Temp Pulse Resp BP Pulse Ox 09/13/19 10:50 36.5 C 73 18 139/58 L 18 L - My Orders Last 24 Hours: My Active Orders 09/13/19 11:21 Bacitracin [Bacitracin Oint 1 GM] 1 dose TOP ONETIME ONE - Assessment/Plan Last 24 Hours: My Active Orders 09/13/19 11:21 Bacitracin [Bacitracin Oint 1 GM] 1 dose TOP ONETIME ONE
== END 2019-09-13 11:35 | disposition home or self-care (01) ==
LOC: FB.ED 10:50
DX: I83.892 Varicose veins of left lower extremity with other complications (principal); E78.00 Pure hypercholesterolemia, unspecified; F41.9 Anxiety disorder, unspecified; F32.9 Major depressive disorder, single episode, unspecified; E66.9 Obesity, unspecified; Z68.42 Body mass index [BMI] 45.0-49.9, adult; Z88.8 Allergy status to other drugs, medicaments and biological substances
CPT/HCPCS: 99282; 99283

== ENCOUNTER 2020-05-11 22:22 | Inpatient (IN) | payer MEDICARE, MEDICAID ==
[2020-05-11] MEDS ORDERED: Pantoprazole 40 MG Vial IVPUSH ONE (22:48)
--- NOTE | 2020-05-11 22:55 | EDM.PDOC ---
ED HPI GENERAL MEDICAL PROBLEM - General Chief Complaint: Abdominal Pain Stated Complaint: ABDOMINAL PAIN Time Seen by Provider: 05/11/20 22:50 Source of Information: Reports: Patient History Limitations: Reports: No Limitations - History of Present Illness INITIAL COMMENTS - FREE TEXT/NARRATIVE: Patient developed RUQ pain radiating to right mid back yesterday, it has now spread to epigastrum and LUQ. Denies N/V. Had hard BM today. Endorses urinary frequency. Past surgical history includes cholecystectomy and hernia repair. PMHx includes kidney stones, T2DM, HLD, obesity, and IBS. Patient tested positive for COVID in Dec 2019. Patient drinks alcohol occasionally, last intake was 2 beers @2 weeks ago. Onset Date: 05/10/20 Location: Reports: Abdomen Quality: Reports: Ache Severity: Moderate Associated Symptoms: Reports: Cough UPPER RIGHT ABDOMEN Pain Score (Numeric/FACES): 6 - Related Data Allergies Allergy/AdvReac Type Severity Reaction Status Date / Time pregabalin [From Lyrica] Allergy Fatigue Verified 05/11/20 22:55 Home Meds: Home Meds Cetirizine HCl [Zyrtec] 10 mg PO DAILY 05/22/13 [History] Omeprazole [Prilosec] 20 mg PO DAILY 05/22/13 [History] Potassium Chloride 10 meq PO DAILY 05/22/13 [History] Pramipexole [Mirapex] 1.5 mg PO DAILY 05/22/13 [History] Simvastatin [Zocor] 20 mg PO BEDTIME 05/22/13 [History] Gabapentin [Neurontin] 600 mg PO TID 02/14/16 [History] metFORMIN [Glucophage XR] 1,000 mg PO BIDMEALS 02/14/16 [History] Acetaminophen [Acetaminophen Extra Strength] 1,000 mg PO TID PRN 04/28/18 [History] Diclofenac Sodium [Voltaren] 1 applic TOP QID PRN 04/28/18 [History] Albuterol Sulfate [Albuterol Sulfate Hfa] 2 puff INH Q4H PRN 05/11/20 [History] Celecoxib [CeleBREX] 100 mg PO BID 05/11/20 [History] Cholecalciferol (Vitamin D3) [Vitamin D3] 2,000 unit PO DAILY 05/11/20 [History] DULoxetine [Cymbalta] 60 mg PO DAILY 05/11/20 [History] Montelukast [Singulair] 10 mg PO BEDTIME 05/11/20 [History] Multivitamin 1 tab PO DAILY 05/11/20 [History] Spironolactone [Aldactone] 25 mg PO DAILY 05/11/20 [History] cycloSPORINE [Restasis] 1 drop EYEBOTH BID 05/11/20 [History] Past Medical History HEENT History: Reports: Allergic Rhinitis, Hard of Hearing, Impaired Vision Cardiovascular History: Reports: High Cholesterol Respiratory History: Reports: Sleep Apnea Other Respiratory History: MACHINE NOT WITH Gastrointestinal History: Reports: Irritable Bowel Syndrome Genitourinary History: Reports: Renal Calculus Other Genitourinary History: STATES URINARY FREQUENCY, BUT NOT DX WITH PROSTATE PROBLEMS. MEDICATES FOR THIS. 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 LOSS. Hematologic History: Reports: None Oncologic (Cancer) History: Reports: None Dermatologic History: Reports: Venous Stasis Dermatitis - Infectious Disease History Infectious Disease History: Reports: Chicken Pox, Measles, Mumps - Past Surgical History Head Surgeries/Procedures: Reports: None GI Surgical History: Reports: Cholecystectomy, Hernia Repair/Other Neurological Surgical History: Reports: Lumbar Spine Musculoskeletal Surgical History: Reports: Arthroscopic Knee, Carpal Tunnel, Other (See Below) Social & Family History - Family History Family Medical History: No Pertinent Family History - Caffeine Use Caffeine Use: Reports: None - Living Situation & Occupation Occupation: Employed (Works at [employer] ED ROS GENERAL - Review of Systems Review Of Systems: Comprehensive ROS is negative, except as noted in HPI. ED EXAM, GI/ABD - Physical Exam Exam: See Below Exam Limited By: No Limitations General Appearance: Alert, WD/WN, No Apparent Distress Ears: Normal External Exam Nose: Normal Inspection Throat/Mouth: No Airway Compromise Head: Atraumatic, Normocephalic Neck: Full Range of Motion Respiratory/Chest: No Respiratory Distress, Lungs Clear, Normal Breath Sounds Cardiovascular: Regular Rate, Rhythm, No Murmur GI/Abdominal Exam: Normal Bowel Sounds, Soft, No Distention, Tender (epigastric). No: Guarding Back Exam: CVA Tenderness (R). No: CVA Tenderness (L) Extremities: Normal Range of Motion Neurological: Alert, Normal Cognition Course - Vital Signs Last Recorded V/S: Last Vital Signs Temp 37.4 C 05/11/20 22:38 Pulse 83 05/11/20 22:38 Resp 20 05/11/20 22:38 BP 153/68 H 05/11/20 22:38 Pulse Ox 98 05/11/20 22:38 - Orders/Labs/Meds Orders: Active Orders 24 hr Category Date Time Status Admission Status [Patient Status] [ADT] Routine ADT 05/12/20 00:22 Ordered Abdomen Pelvis w Cont [CT] Stat Exams 05/11/20 23:10 Taken Sodium Chloride 0.9% [Saline Flush] Med 05/11/20 22:42 Active 10 ml FLUSH ASDIRECTED PRN Saline Lock Insert [OM.PC] Routine Oth 05/11/20 22:42 Ordered Medication Orders Sodium Chloride (Saline Flush) 10 ml FLUSH ASDIRECTED PRN PRN Reason: Keep Vein Open Last Admin: 05/11/20 23:12 Dose: 10 ml Documented by: NIKIA Labs: Laboratory Tests 05/11/20 05/11/20 05/11/20 Range/Units 22:50 22:52 22:52 WBC 10.9 H (3.2-10.1) x10-3/uL RBC 4.28 (3.90-5.90) x10(6)uL Hgb 13.2 (12.9-17.7) g/dL Hct 41.1 (38.3-50.1) % MCV 96.1 (80.8-98.7) fL MCH 31.0 (27.0-33.3) pg MCHC 32.2 (28.7-35.3) g/dL RDW 15.1 H (12.4-15.0) % Plt Count 226 (117-477) x10(3)uL MPV 8.4 (6.7-11.0) fL Neut % (Auto) 78.1 H (40.3-71.8) % Lymph % (Auto) 11.6 L (15.8-45.3) % [place] % (Auto) 7.9 (5.5-15.2) % Eos % (Auto) 1.9 (0.1-6.8) % Baso % (Auto) 0.5 (0.3-3.8) % Neut # (Auto) 8.5 H (1.7-6.9) x10-3/uL Lymph # (Auto) 1.3 (0.5-4.5) x10-3/uL [place] # (Auto) 0.9 (0.0-1.2) x10-3/uL Eos # (Auto) 0.2 (0.0-0.6) x10-3/uL Baso # (Auto) 0.1 (0.0-0.3) x10-3/uL Sodium 139 (135-145) mmol/L Potassium 4.3 (3.5-5.3) mmol/L Chloride 102 (100-110) mmol/L Carbon Dioxide 32 (21-32) mmol/L BUN 18 (7-18) mg/dL Creatinine 1.0 (0.70-1.30) mg/dL Est Cr Clr Drug Dosing 92.48 mL/min Estimated GFR (MDRD) > 60 (>60) BUN/Creatinine Ratio 18.0 (9-20) Glucose 120 H (80-116) mg/dL Calcium 9.5 (8.6-10.2) mg/dL Total Bilirubin 0.5 (0.1-1.3) mg/dL AST 18 D (5-25) IU/L ALT 28 (12-36) U/L Alkaline Phosphatase 93 (56-112) IU/L Total Protein 7.9 (6.0-8.0) g/dL Albumin 3.9 (3.5-5.2) g/dL Globulin 4.0 g/dL Albumin/Globulin Ratio 1.0 Triglycerides (15-150) mg/dL Cholesterol (50-200) mg/dL LDL Cholesterol Direct (60-130) mg/dL HDL Cholesterol (40-75) mg/dL Cholesterol/HDL Ratio (0-5) Lipase (73-393) U/L Urine Color Yellow (YELLOW) Urine Appearance Clear (CLEAR) Urine pH 6.0 (5.0-6.5) Ur Specific [place] 1.005 L (1.010-1.025) Urine Protein Negative (NEGATIVE) mg/dL Urine Glucose (UA) Normal (NORMAL) mg/dL Urine Ketones Negative (NEGATIVE) mg/dL Urine Occult Blood Negative (NEGATIVE) Urine Nitrite Negative (NEGATIVE) Urine Bilirubin Negative (NEGATIVE) Urine Urobilinogen Normal (NEGATIVE) mg/dL Ur Leukocyte Esterase Negative (NEGATIVE) Urine RBC 0-5 (0-5) Urine WBC 0-5 (0-5) Ur Squamous Epith Cells Rare (NS,R,O) Urine Bacteria Occasional H (NS) Ethyl Alcohol (<0.03) % 05/11/20 05/11/20 05/11/20 Range/Units 22:52 22:52 22:52 WBC (3.2-10.1) x10-3/uL RBC (3.90-5.90) x10(6)uL Hgb (12.9-17.7) g/dL Hct (38.3-50.1) % MCV (80.8-98.7) fL MCH (27.0-33.3) pg MCHC (28.7-35.3) g/dL RDW (12.4-15.0) % Plt Count (117-477) x10(3)uL MPV (6.7-11.0) fL Neut % (Auto) (40.3-71.8) % Lymph % (Auto) (15.8-45.3) % [place] % (Auto) (5.5-15.2) % Eos % (Auto) (0.1-6.8) % Baso % (Auto) (0.3-3.8) % Neut # (Auto) (1.7-6.9) x10-3/uL Lymph # (Auto) (0.5-4.5) x10-3/uL [place] # (Auto) (0.0-1.2) x10-3/uL Eos # (Auto) (0.0-0.6) x10-3/uL Baso # (Auto) (0.0-0.3) x10-3/uL Sodium (135-145) mmol/L Potassium (3.5-5.3) mmol/L Chloride (100-110) mmol/L Carbon Dioxide (21-32) mmol/L BUN (7-18) mg/dL Creatinine (0.70-1.30) mg/dL Est Cr Clr Drug Dosing mL/min Estimated GFR (MDRD) (>60) BUN/Creatinine Ratio (9-20) Glucose (80-116) mg/dL Calcium (8.6-10.2) mg/dL Total Bilirubin (0.1-1.3) mg/dL AST (5-25) IU/L ALT (12-36) U/L Alkaline Phosphatase (56-112) IU/L Total Protein (6.0-8.0) g/dL Albumin (3.5-5.2) g/dL Globulin g/dL Albumin/Globulin Ratio Triglycerides 127 (15-150) mg/dL Cholesterol 144 (50-200) mg/dL LDL Cholesterol Direct 78 (60-130) mg/dL HDL Cholesterol 51 (40-75) mg/dL Cholesterol/HDL Ratio 2.8 (0-5) Lipase 1297 H (73-393) U/L Urine Color (YELLOW) Urine Appearance (CLEAR) Urine pH (5.0-6.5) Ur Specific [place] (1.010-1.025) Urine Protein (NEGATIVE) mg/dL Urine Glucose (UA) (NORMAL) mg/dL Urine Ketones (NEGATIVE) mg/dL Urine Occult Blood (NEGATIVE) Urine Nitrite (NEGATIVE) Urine Bilirubin (NEGATIVE) Urine Urobilinogen (NEGATIVE) mg/dL Ur Leukocyte Esterase (NEGATIVE) Urine RBC (0-5) Urine WBC (0-5) Ur Squamous Epith Cells (NS,R,O) Urine Bacteria (NS) Ethyl Alcohol < 0.03 (<0.03) % Meds: Medications Generic Name Dose Route Start Last Admin Trade Name Freq PRN Reason Stop Dose Admin Sodium Chloride 10 ml 05/11/20 22:42 05/11/20 23:12 Saline Flush FLUSH 10 ml ASDIRECTED PRN Administration Keep Vein Open Discontinued Medications Generic Name Dose Route Start Last Admin Trade Name Freq PRN Reason Stop Dose Admin Hydromorphone HCl 0.5 mg 05/11/20 23:11 05/11/20 23:25 Dilaudid IVPUSH 05/11/20 23:12 0.5 mg ONETIME ONE Administration Sodium Chloride 1,000 mls @ 999 mls/hr 05/11/20 23:11 05/11/20 23:20 Normal Saline IV 05/12/20 00:11 999 mls/hr .BOLUS ONE Administration Iopamidol 100 ml 05/11/20 23:31 05/11/20 23:40 Isovue-370 (76%) IV 05/11/20 23:32 100 ml . DIRECTED ONE Administration Pantoprazole Sodium 40 mg 05/11/20 22:48 05/11/20 23:11 Protonix Iv IVPUSH 05/11/20 22:49 40 mg ONETIME ONE Administration - Radiology Interpretation Free Text/Narrative:: CT Abd/Pelvis w/ IV contrast: Impression: 1. Mild edema around the pancreatic head, concerning for acute pancreatitis. Correlate with pancreatic enzyme levels. No evidence of pancreatic necrosis or peripancreatic fluid collection. 2. Bilateral facet arthropathy at L4-5 with grade 2 anterolisthesis, worsened since 2019. Dictated by Ibrahima Giron MD @ May 11 2020 11:59PM - Re-Assessments/Exams Free Text/Narrative Re-Assessment/Exam: 05/12/20 00:23 Symptoms improved after Dilaudid and Protonix. Departure - Departure Time of Disposition: 00:24 Disposition: Admitted As Inpatient 67 Condition: Fair Clinical Impression: Acute pancreatitis Qualifiers: Pancreatitis type: unspecified pancreatitis type Acute pancreatitis complication: no infection or necrosis Qualified Code(s): K85.90 - Acute pancreatitis without necrosis or infection, unspecified - Discharge Information Referrals: Brittney Wong [facility] [Primary Care Provider] - Forms: ED Department Discharge Sepsis Event Note (ED) - Evaluation Sepsis Screening Result: No Definite Risk - Focused Exam Vital Signs: Vital Signs Temp Pulse Resp BP Pulse Ox 05/11/20 22:38 37.4 C 83 20 153/68 H 98 - My Orders Last 24 Hours: My Active Orders 05/11/20 22:42 Sodium Chloride 0.9% [Saline Flush] 10 ml FLUSH ASDIRECTED PRN Saline Lock Insert [OM.PC] Routine 05/11/20 23:10 Abdomen Pelvis w Cont [CT] Stat 05/12/20 00:22 Admission Status [Patient Status] [ADT] Routine - Assessment/Plan Last 24 Hours: My Active Orders 05/11/20 22:42 Sodium Chloride 0.9% [Saline Flush] 10 ml FLUSH ASDIRECTED PRN Saline Lock Insert [OM.PC] Routine 05/11/20 23:10 Abdomen Pelvis w Cont [CT] Stat 05/12/20 00:22 Admission Status [Patient Status] [ADT] Routine
[2020-05-11] MEDS ORDERED: Sodium Chloride 0.9% 1,000 ML IV ONE (23:11)
[2020-05-11] MEDS ORDERED: HYDROmorphone 2 MG/ML SDV IVPUSH ONE (23:11)
[2020-05-11] MEDS: Sodium Chloride 0.9% 10 ML Syringe FLUSH PRN (23:12)
[2020-05-11] MEDS ORDERED: Iopamidol 755 Mg/ML 100 ML Bottle IV ONE (23:31)
[2020-05-12] MEDS: Sodium Chloride 0.9% 1,000 ML IV SCH ×3 (00:30→08:29)
[2020-05-12] MEDS ORDERED: Ondansetron 4 MG/2 ML SDV IV PRN (00:42)
[2020-05-12] MEDS ORDERED: Glucagon,Human Recombinant 1 MG Vial IM PRN (00:45)
[2020-05-12] MEDS ORDERED: 50% Dextrose in Water 50 ML Syringe IVPUSH PRN (00:45)
[2020-05-12] MEDS: HYDROmorphone 2 MG/ML SDV IVPUSH PRN ×2 (02:17→07:13)
[2020-05-12] MEDS ORDERED: Insulin Lispro 100 Unit/ML 3 ML KwikPen SUBCUT SCH (08:00)
[2020-05-12] MEDS: Lactated Ringers 1,000 ML IV SCH ×4 (08:30→20:42)
[2020-05-12] MEDS ORDERED: Acetaminophen 1,000 MG in Premix Bag 1 BAG IV SCH (09:00)
[2020-05-12] MEDS: cycloSPORINE Ophth Drops U/D Box of 30 EYEBOTH SCH ×2 (09:34→20:31)
[2020-05-12] MEDS: Pantoprazole 40 MG Vial IVPUSH SCH ×2 (09:34→20:28)
[2020-05-12] MEDS: Ketorolac 30 MG/ML SDV IVPUSH SCH ×3 (09:35→20:32)
[2020-05-12] MEDS: Acetaminophen 650 MG Supp RECTAL SCH ×3 (09:36→20:32)
--- NOTE | 2020-05-12 11:39 | PCM.HP.2 ---
H&P History of Present Illness - General Date of Service: 05/12/20 Admit Problem/Dx: Admission Diagnosis/Problem Admission Diagnosis/Problem Pancreatitis Source of Information: Patient, EMS Notes Reviewed - History of Present Illness Initial Comments - Free Text/Narative: Abdon developed RUQ pain radiating to right mid back & ribs Weds am/Tues pm, it has now spread to epigastrium and LUQ. Nauseous but no vomiting or diarrhea. Had hard small BM today. Has urinary frequency but no dysuria. Has sinus drainage & cough but no facial pain, shortness of breath, chest pain. Past surgical history includes cholecystectomy and hernia repair. PMHx includes kidney stones, Hyperlipidemia on Statin, obesity, and IBS. Patient tested positive for COVID in Dec 2019. Patient drinks alcohol occasionally, last intake was 2 beers @2 weeks ago. Denies any black, bloody stools, hematemesis, hemoptysis. Medication allergy only to Lyrica. No fevers, chills or rash. In ER had mildly elevated WBC 10.9, CT showed acute pancreatitis. Chemistry & LFTs were within normal limits. Lipases was elevated at 1297 at 2252 and repeat this morning was 907. UA negative. Covid Negative. Alcohol <0.03. Received NS 1 Liter bolus and continued NS at rate of 250ml/hr, on his 4th liter this morning. Lipid panel was well controlled. States he is on Metformin for weight loss. Lower Back Pain Score (Numeric/FACES): 7 UPPER RIGHT ABDOMEN Pain Score (Numeric/FACES): 7 - Related Data Allergies/Adverse Reactions: Allergies Allergy/AdvReac Type Severity Reaction Status Date / Time pregabalin [From Lyrica] Allergy Fatigue Verified 05/11/20 22:55 Home Medications: Home Meds Cetirizine HCl [Zyrtec] 10 mg PO DAILY 05/22/13 [History] Omeprazole [Prilosec] 20 mg PO DAILY 05/22/13 [History] Potassium Chloride 10 meq PO DAILY 05/22/13 [History] Simvastatin [Zocor] 20 mg PO BEDTIME 05/22/13 [History] Gabapentin [Neurontin] 600 mg PO TID 02/14/16 [History] metFORMIN [Glucophage XR] 1,000 mg PO BIDMEALS 02/14/16 [History] Acetaminophen [Acetaminophen Extra Strength] 1,000 mg PO TID PRN 04/28/18 [History] Diclofenac Sodium [Voltaren] 1 applic TOP QID PRN 04/28/18 [History] Albuterol Sulfate [Albuterol Sulfate Hfa] 2 puff INH Q4H PRN 05/11/20 [History] Celecoxib [CeleBREX] 100 mg PO BID 05/11/20 [History] Cholecalciferol (Vitamin D3) [Vitamin D3] 2,000 unit PO DAILY 05/11/20 [History] DULoxetine [Cymbalta] 60 mg PO DAILY 05/11/20 [History] Montelukast [Singulair] 10 mg PO BEDTIME 05/11/20 [History] Multivitamin 1 tab PO DAILY 05/11/20 [History] Spironolactone [Aldactone] 25 mg PO DAILY 05/11/20 [History] cycloSPORINE [Restasis] 1 drop EYEBOTH BID 05/11/20 [History] Acyclovir 400 mg PO 5XDAY PRN 05/12/20 [History] Diclofenac Sodium [Voltaren] 4 gm TOP TID 05/12/20 [History] rOPINIRole [Requip] 0.25 mg PO BID 05/12/20 [History] Past Medical History HEENT History: Reports: Allergic Rhinitis, Hard of Hearing, Impaired Vision Cardiovascular History: Reports: High Cholesterol Respiratory History: Reports: Sleep Apnea Other Respiratory History: MACHINE NOT WITH Gastrointestinal History: Reports: Irritable Bowel Syndrome Genitourinary History: Reports: Renal Calculus Other Genitourinary History: STATES URINARY FREQUENCY, BUT NOT DX WITH PROSTATE PROBLEMS. MEDICATES FOR THIS. STATES PASSED STONES WITHOUT SURGERY [employer]TENA[employer] History: Reports: None Musculoskeletal History: Reports: Arthritis, Back Pain, Chronic Psychiatric History: Reports: Anxiety, Depression Endocrine/Metabolic History: Reports: Obesity/BMI 30+ Other Endocrine/Metabolic History: DENIES HAVING DIABETES, BUT USES METFORMIN FOR WT. LOSS. Hematologic History: Reports: None Oncologic (Cancer) History: Reports: None Dermatologic History: Reports: Venous Stasis Dermatitis - Infectious Disease History Infectious Disease History: Reports: Chicken Pox, Measles, Mumps - Past Surgical History Head Surgeries/Procedures: Reports: None GI Surgical History: Reports: Cholecystectomy, Hernia Repair/Other Neurological Surgical History: Reports: Lumbar Spine Musculoskeletal Surgical History: Reports: Arthroscopic Knee, Carpal Tunnel, Other (See Below) Other Musculoskeletal Surgeries/Procedures:: R rotator cuff, L knee surgery Social & Family History - Family History Family Medical History: No Pertinent Family History - Tobacco Use Tobacco Use Status *Q: Never Tobacco User Second Hand Smoke Exposure: No - Caffeine Use Caffeine Use: Reports: Soda - Alcohol Use Days Per Week of Alcohol Use: 1 Number of Drinks Per Day: 0 Total Drinks Per Week: 0 - Recreational Drug Use Recreational Drug Use: No - Living Situation & Occupation Occupation: Employed (Works at the [employer] H&P Review of Systems - Review of Systems: Review Of Systems: Comprehensive ROS is negative, except as noted in HPI. Exam - Exam Exam: See Below - Vital Signs Vital Signs: Last Vital Signs Temp 98.7 F 05/12/20 07:50 Pulse 83 05/12/20 07:50 Resp 20 05/12/20 07:50 BP 146/64 H 05/12/20 07:50 Pulse Ox 96 05/12/20 07:50 Weight: 349 lb 9 oz - Exam General: Alert, Oriented, Cooperative. No: Mild Distress HEENT: PERRLA, Conjunctiva Clear, EOMI, Hearing Intact, Mucosa Moist & [place], Nares Patent, Normal Nasal Septum (frontal & maxillary sinus: NT), Posterior Pharynx Clear, TMs Clear, Other Neck: Supple, Trachea Midline Lungs: Clear to Auscultation, Normal Respiratory Effort Cardiovascular: Regular Rate, Regular Rhythm GI/Abdominal Exam: Normal Bowel Sounds, Soft, No Distention, Guarding, Tender. No: Rigid, Rebound (Male) Exam: Deferred Rectal (Males) Exam: Deferred Extremities: No Pedal Edema Peripheral Pulses: 2+: Radial (L), Radial (R) Skin: Warm, Dry, Intact Neurological: Cranial Nerves Intact, Normal Speech, Normal Tone Psychiatric: Normal Affect, Normal Mood - Patient Data Lab Results Last 24 hrs: Laboratory Results - last 24 hr 05/11/20 05/11/20 05/11/20 Range/Units 22:50 22:52 22:52 WBC 10.9 H (3.2-10.1) x10-3/uL RBC 4.28 (3.90-5.90) x10(6)uL Hgb 13.2 (12.9-17.7) g/dL Hct 41.1 (38.3-50.1) % MCV 96.1 (80.8-98.7) fL MCH 31.0 (27.0-33.3) pg MCHC 32.2 (28.7-35.3) g/dL RDW 15.1 H (12.4-15.0) % Plt Count 226 (117-477) x10(3)uL MPV 8.4 (6.7-11.0) fL Neut % (Auto) 78.1 H (40.3-71.8) % Lymph % (Auto) 11.6 L (15.8-45.3) % Worth % (Auto) 7.9 (5.5-15.2) % Eos % (Auto) 1.9 (0.1-6.8) % Baso % (Auto) 0.5 (0.3-3.8) % Neut # (Auto) 8.5 H (1.7-6.9) x10-3/uL Lymph # (Auto) 1.3 (0.5-4.5) x10-3/uL Worth # (Auto) 0.9 (0.0-1.2) x10-3/uL Eos # (Auto) 0.2 (0.0-0.6) x10-3/uL Baso # (Auto) 0.1 (0.0-0.3) x10-3/uL Sodium 139 (135-145) mmol/L Potassium 4.3 (3.5-5.3) mmol/L Chloride 102 (100-110) mmol/L Carbon Dioxide 32 (21-32) mmol/L BUN 18 (7-18) mg/dL Creatinine 1.0 (0.70-1.30) mg/dL Est Cr Clr Drug Dosing 92.48 mL/min Estimated GFR (MDRD) > 60 (>60) BUN/Creatinine Ratio 18.0 (9-20) Glucose 120 H (80-116) mg/dL Calcium 9.5 (8.6-10.2) mg/dL Total Bilirubin 0.5 (0.1-1.3) mg/dL AST 18 D (5-25) IU/L ALT 28 (12-36) U/L Alkaline Phosphatase 93 (56-112) IU/L Total Protein 7.9 (6.0-8.0) g/dL Albumin 3.9 (3.5-5.2) g/dL Globulin 4.0 g/dL Albumin/Globulin Ratio 1.0 Triglycerides (15-150) mg/dL Cholesterol (50-200) mg/dL LDL Cholesterol Direct (60-130) mg/dL HDL Cholesterol (40-75) mg/dL Cholesterol/HDL Ratio (0-5) Lipase (73-393) U/L Urine Color Yellow (YELLOW) Urine Appearance Clear (CLEAR) Urine pH 6.0 (5.0-6.5) Ur Specific [place] 1.005 L (1.010-1.025) Urine Protein Negative (NEGATIVE) mg/dL Urine Glucose (UA) Normal (NORMAL) mg/dL Urine Ketones Negative (NEGATIVE) mg/dL Urine Occult Blood Negative (NEGATIVE) Urine Nitrite Negative (NEGATIVE) Urine Bilirubin Negative (NEGATIVE) Urine Urobilinogen Normal (NEGATIVE) mg/dL Ur Leukocyte Esterase Negative (NEGATIVE) Urine RBC 0-5 (0-5) Urine WBC 0-5 (0-5) Ur Squamous Epith Cells Rare (NS,R,O) Urine Bacteria Occasional H (NS) Ethyl Alcohol (<0.03) % SARS-CoV-2 RNA (ANDREW) (NEGATIVE) 05/11/20 05/11/20 05/11/20 Range/Units 22:52 22:52 22:52 WBC (3.2-10.1) x10-3/uL RBC (3.90-5.90) x10(6)uL Hgb (12.9-17.7) g/dL Hct (38.3-50.1) % MCV (80.8-98.7) fL MCH (27.0-33.3) pg MCHC (28.7-35.3) g/dL RDW (12.4-15.0) % Plt Count (117-477) x10(3)uL MPV (6.7-11.0) fL Neut % (Auto) (40.3-71.8) % Lymph % (Auto) (15.8-45.3) % Worth % (Auto) (5.5-15.2) % Eos % (Auto) (0.1-6.8) % Baso % (Auto) (0.3-3.8) % Neut # (Auto) (1.7-6.9) x10-3/uL Lymph # (Auto) (0.5-4.5) x10-3/uL Worth # (Auto) (0.0-1.2) x10-3/uL Eos # (Auto) (0.0-0.6) x10-3/uL Baso # (Auto) (0.0-0.3) x10-3/uL Sodium (135-145) mmol/L Potassium (3.5-5.3) mmol/L Chloride (100-110) mmol/L Carbon Dioxide (21-32) mmol/L BUN (7-18) mg/dL Creatinine (0.70-1.30) mg/dL Est Cr Clr Drug Dosing mL/min Estimated GFR (MDRD) (>60) BUN/Creatinine Ratio (9-20) Glucose (80-116) mg/dL Calcium (8.6-10.2) mg/dL Total Bilirubin (0.1-1.3) mg/dL AST (5-25) IU/L ALT (12-36) U/L Alkaline Phosphatase (56-112) IU/L Total Protein (6.0-8.0) g/dL Albumin (3.5-5.2) g/dL Globulin g/dL Albumin/Globulin Ratio Triglycerides 127 (15-150) mg/dL Cholesterol 144 (50-200) mg/dL LDL Cholesterol Direct 78 (60-130) mg/dL HDL Cholesterol 51 (40-75) mg/dL Cholesterol/HDL Ratio 2.8 (0-5) Lipase 1297 H (73-393) U/L Urine Color (YELLOW) Urine Appearance (CLEAR) Urine pH (5.0-6.5) Ur Specific [place] (1.010-1.025) Urine Protein (NEGATIVE) mg/dL Urine Glucose (UA) (NORMAL) mg/dL Urine Ketones (NEGATIVE) mg/dL Urine Occult Blood (NEGATIVE) Urine Nitrite (NEGATIVE) Urine Bilirubin (NEGATIVE) Urine Urobilinogen (NEGATIVE) mg/dL Ur Leukocyte Esterase (NEGATIVE) Urine RBC (0-5) Urine WBC (0-5) Ur Squamous Epith Cells (NS,R,O) Urine Bacteria (NS) Ethyl Alcohol < 0.03 (<0.03) % SARS-CoV-2 RNA (ANDREW) (NEGATIVE) 05/12/20 05/12/20 05/12/20 Range/Units 00:40 06:30 06:30 WBC 10.3 H (3.2-10.1) x10-3/uL RBC 4.11 (3.90-5.90) x10(6)uL Hgb 12.6 L (12.9-17.7) g/dL Hct 39.5 (38.3-50.1) % MCV 96.1 (80.8-98.7) fL MCH 30.7 (27.0-33.3) pg MCHC 32.0 (28.7-35.3) g/dL RDW 15.4 H (12.4-15.0) % Plt Count 233 (117-477) x10(3)uL MPV 9.0 (6.7-11.0) fL Neut % (Auto) 76.5 H (40.3-71.8) % Lymph % (Auto) 12.8 L (15.8-45.3) % Worth % (Auto) 8.9 (5.5-15.2) % Eos % (Auto) 1.6 (0.1-6.8) % Baso % (Auto) 0.2 L (0.3-3.8) % Neut # (Auto) 7.9 H (1.7-6.9) x10-3/uL Lymph # (Auto) 1.3 (0.5-4.5) x10-3/uL Worth # (Auto) 0.9 (0.0-1.2) x10-3/uL Eos # (Auto) 0.2 (0.0-0.6) x10-3/uL Baso # (Auto) 0.0 (0.0-0.3) x10-3/uL Sodium 141 (135-145) mmol/L Potassium 3.9 (3.5-5.3) mmol/L Chloride 103 (100-110) mmol/L Carbon Dioxide 31 (21-32) mmol/L BUN 13 (7-18) mg/dL Creatinine 0.9 (0.70-1.30) mg/dL Est Cr Clr Drug Dosing 102.75 mL/min Estimated GFR (MDRD) > 60 (>60) BUN/Creatinine Ratio 14.4 (9-20) Glucose 111 (80-116) mg/dL Calcium 9.1 (8.6-10.2) mg/dL Total Bilirubin (0.1-1.3) mg/dL AST (5-25) IU/L ALT (12-36) U/L Alkaline Phosphatase (56-112) IU/L Total Protein (6.0-8.0) g/dL Albumin (3.5-5.2) g/dL Globulin g/dL Albumin/Globulin Ratio Triglycerides (15-150) mg/dL Cholesterol (50-200) mg/dL LDL Cholesterol Direct (60-130) mg/dL HDL Cholesterol (40-75) mg/dL Cholesterol/HDL Ratio (0-5) Lipase (73-393) U/L Urine Color (YELLOW) Urine Appearance (CLEAR) Urine pH (5.0-6.5) Ur Specific [place] (1.010-1.025) Urine Protein (NEGATIVE) mg/dL Urine Glucose (UA) (NORMAL) mg/dL Urine Ketones (NEGATIVE) mg/dL Urine Occult Blood (NEGATIVE) Urine Nitrite (NEGATIVE) Urine Bilirubin (NEGATIVE) Urine Urobilinogen (NEGATIVE) mg/dL Ur Leukocyte Esterase (NEGATIVE) Urine RBC (0-5) Urine WBC (0-5) Ur Squamous Epith Cells (NS,R,O) Urine Bacteria (NS) Ethyl Alcohol (<0.03) % SARS-CoV-2 RNA (ANDREW) Negative (NEGATIVE) 05/12/20 Range/Units 06:30 WBC (3.2-10.1) x10-3/uL RBC (3.90-5.90) x10(6)uL Hgb (12.9-17.7) g/dL Hct (38.3-50.1) % MCV (80.8-98.7) fL MCH (27.0-33.3) pg MCHC (28.7-35.3) g/dL RDW (12.4-15.0) % Plt Count (117-477) x10(3)uL MPV (6.7-11.0) fL Neut % (Auto) (40.3-71.8) % Lymph % (Auto) (15.8-45.3) % Worth % (Auto) (5.5-15.2) % Eos % (Auto) (0.1-6.8) % Baso % (Auto) (0.3-3.8) % Neut # (Auto) (1.7-6.9) x10-3/uL Lymph # (Auto) (0.5-4.5) x10-3/uL Worth # (Auto) (0.0-1.2) x10-3/uL Eos # (Auto) (0.0-0.6) x10-3/uL Baso # (Auto) (0.0-0.3) x10-3/uL Sodium (135-145) mmol/L Potassium (3.5-5.3) mmol/L Chloride (100-110) mmol/L Carbon Dioxide (21-32) mmol/L BUN (7-18) mg/dL Creatinine (0.70-1.30) mg/dL Est Cr Clr Drug Dosing mL/min Estimated GFR (MDRD) (>60) BUN/Creatinine Ratio (9-20) Glucose (80-116) mg/dL Calcium (8.6-10.2) mg/dL Total Bilirubin (0.1-1.3) mg/dL AST (5-25) IU/L ALT (12-36) U/L Alkaline Phosphatase (56-112) IU/L Total Protein (6.0-8.0) g/dL Albumin (3.5-5.2) g/dL Globulin g/dL Albumin/Globulin Ratio Triglycerides (15-150) mg/dL Cholesterol (50-200) mg/dL LDL Cholesterol Direct (60-130) mg/dL HDL Cholesterol (40-75) mg/dL Cholesterol/HDL Ratio (0-5) Lipase 997 H (73-393) U/L Urine Color (YELLOW) Urine Appearance (CLEAR) Urine pH (5.0-6.5) Ur Specific [place] (1.010-1.025) Urine Protein (NEGATIVE) mg/dL Urine Glucose (UA) (NORMAL) mg/dL Urine Ketones (NEGATIVE) mg/dL Urine Occult Blood (NEGATIVE) Urine Nitrite (NEGATIVE) Urine Bilirubin (NEGATIVE) Urine Urobilinogen (NEGATIVE) mg/dL Ur Leukocyte Esterase (NEGATIVE) Urine RBC (0-5) Urine WBC (0-5) Ur Squamous Epith Cells (NS,R,O) Urine Bacteria (NS) Ethyl Alcohol (<0.03) % SARS-CoV-2 RNA (ANDREW) (NEGATIVE) Result Diagrams: 05/12/20 06:30 05/12/20 06:30 Imaging Impressions Last 24 hrs: CT Abd/Pelvis w/ IV contrast: Impression: 1. Mild edema around the pancreatic head, concerning for acute pancreatitis. Correlate with pancreatic enzyme levels. No evidence of pancreatic necrosis or peripancreatic fluid collection. 2. Bilateral facet arthropathy at L4-5 with grade 2 anterolisthesis, worsened since 2019. Dictated by Ibrahima Giron MD @ May 11 2020 11:59PM Sepsis Event Note - Evaluation Sepsis Screening Result: No Definite Risk - Focused Exam Vital Signs: Vital Signs Temp Temp Pulse Resp BP BP Pulse Ox 05/12/20 07:50 98.7 F 83 20 146/64 H 96 05/12/20 01:45 98.1 F 70 16 143/81 H 97 05/12/20 00:30 99.4 F 78 16 134/51 L 96 *Q Meaningful Use (ADM) - VTE Risk Assess *Q Each Risk Factor Represents 1 Point: Age 41 - 59 years, Obesity ( BMI > 25 kg /m2) Total Score 1 Point Risk Factors: 2 Each Risk Factor Represents 2 Points: None Total Score 2 Point Risk Factors: 0 Each Risk Factor Represents 3 Points: None Total Score 3 Point Risk Factors: 0 Each Risk Factor Represents 5 Points: None Total Score 5 Point Risk Factors: 0 Venous Thromboembolism Risk Factor Score *Q: 2 - Problem List (1) Acute pancreatitis SNOMED Code(s): 917592746 ICD Code: K85.90 - ACUTE PANCREATITIS WITHOUT NECROSIS OR INFECTION, UNSP Status: Acute Current Visit: Yes Qualifiers: Pancreatitis type: unspecified pancreatitis type Acute pancreatitis complication: no infection or necrosis Qualified Code(s): K85.90 - Acute pancreatitis without necrosis or infection, unspecified (2) Hyperlipidemia SNOMED Code(s): 71855654 ICD Code: E78.5 - HYPERLIPIDEMIA, UNSPECIFIED Status: Chronic Current Visit: Yes (3) Obesity, Class III, BMI 40-49.9 (morbid obesity) SNOMED Code(s): 774424106, 142746214, 78443810556328 ICD Code: E66.01 - MORBID (SEVERE) OBESITY DUE TO EXCESS CALORIES Status: Chronic Current Visit: Yes (4) GERD (gastroesophageal reflux disease) SNOMED Code(s): 528412119 ICD Code: K21.9 - GASTRO-ESOPHAGEAL REFLUX DISEASE WITHOUT ESOPHAGITIS Status: Chronic Current Visit: Yes Problem List Initiated/Reviewed/Updated: Yes Orders Last 24hrs: Active Orders 24 hr Category Date Time Status Admission Status [Patient Status] [ADT] Routine ADT 05/12/20 00:22 Active Ambulate [RC] PER UNIT ROUTINE Care 05/12/20 00:43 Active Antiembolic Devices [RC] .Routine Care 05/12/20 00:42 Active Blood Glucose Check, Bedside [RC] 07,11,17 Care 05/12/20 00:42 Active Height and Weight [RC] 06 Care 05/12/20 00:42 Active Intake and Output [RC] 06,14,22 Care 05/12/20 00:42 Active Notify Provider Vital Signs [RC] ASDIRECTED Care 05/12/20 00:43 Active Oxygen Therapy [RC] PRN Care 05/12/20 00:42 Active Pulse Oximetry [RC] PRN Care 05/12/20 00:42 Active VTE/DVT Education [RC] Per Unit Routine Care 05/12/20 00:42 Active Vital Signs [RC] QSHIFT Care 05/12/20 00:42 Active Nothing per Oral Now Diet [DIET] Diet 05/12/20 Breakfast Active Abdomen Pelvis w Cont [CT] Stat Exams 05/11/20 23:10 Taken CBC WITH AUTO DIFF [HEME] Routine Lab 05/13/20 06:00 Ordered COMPREHENSIVE METABOLIC PN,CMP [CHEM] Routine Lab 05/13/20 06:00 Ordered LIPASE [CHEM] Routine Lab 05/13/20 06:00 Ordered Acetaminophen [Tylenol] Med 05/12/20 09:00 Active 650 mg RECTAL Q6H DULoxetine [Cymbalta] Med 05/12/20 09:00 Hold 60 mg PO DAILY Gabapentin [Neurontin] Med 05/12/20 09:00 Hold 600 mg PO TID HYDROmorphone [Dilaudid] Med 05/12/20 00:42 Active 0.5 mg IVPUSH Q2H PRN Ketorolac [Toradol] Med 05/12/20 09:00 Active 30 mg IVPUSH Q6H Lactated Ringers [Ringers, Lactated] 1,000 ml Med 05/12/20 09:00 Active IV ASDIRECTED Ondansetron [Zofran] Med 05/12/20 00:42 Active 4 mg IV Q8H PRN Pantoprazole [ProTONIX IV] Med 05/12/20 09:00 Active 40 mg IVPUSH Q12H Sodium Chloride 0.9% [Saline Flush] Med 05/11/20 22:42 Active 10 ml FLUSH ASDIRECTED PRN cycloSPORINE [Restasis] Med 05/12/20 09:00 Active 0 each EYEBOTH BID Antiembolic Hose [OM.PC] Per Unit Routine Oth 05/12/20 00:43 Ordered Saline Lock Insert [OM.PC] Routine Oth 05/11/20 22:42 Ordered Resuscitation Status Routine Resus Stat 05/12/20 00:42 Ordered Medication Orders Acetaminophen (Tylenol) 650 mg RECTAL Q6H [facility] Last Admin: 05/12/20 09:36 Dose: 650 mg Documented by: KEO Cyclosporine (Restasis) 0 each EYEBOTH BID [facility] Last Admin: 05/12/20 09:34 Dose: 1 drop Documented by: KEO Duloxetine HCl (Cymbalta) 60 mg PO DAILY [facility] Gabapentin (Neurontin) 600 mg PO TID [facility] Hydromorphone HCl (Dilaudid) 0.5 mg IVPUSH Q2H PRN PRN Reason: Pain (severe 7-10) Last Admin: 05/12/20 07:13 Dose: 0.5 mg Documented by: Admin: 05/12/20 02:17 Dose: 0.5 mg Documented by: DHIRAJ Lactated Ringer's (Ringers, Lactated) 1,000 mls @ 250 mls/hr IV ASDIRECTED [facility] Last Admin: 05/12/20 08:30 Dose: 250 mls/hr Documented by: KEO Ketorolac Tromethamine (Toradol) 30 mg IVPUSH Q6H [facility] Stop: 05/17/20 08:49 Last Admin: 05/12/20 09:35 Dose: 30 mg Documented by: KEO Ondansetron HCl (Zofran) 4 mg IV Q8H PRN PRN Reason: Nausea/Vomiting Pantoprazole Sodium (Protonix Iv) 40 mg IVPUSH Q12H [facility] Last Admin: 05/12/20 09:34 Dose: 40 mg Documented by: KEO Sodium Chloride (Saline Flush) 10 ml FLUSH ASDIRECTED PRN PRN Reason: Keep Vein Open Last Admin: 05/11/20 23:12 Dose: 10 ml Documented by: NIKIA Assessment/Plan Comment:: 1. Admit for acute pancreatitis. 2. Pancreatitis: Switch from NS to LR at 250 ml/hr, NPO, as pain starts to improve will advance to clears, if tolerates then will restart po medications. Tylenol 650 mg supp OH q6h & Toradol 30 mg IV q6h, Dilaudid 0.5 mg IV q2h as needed for breakthrough pain. s/p cholecystectomy, has been 2 weeks since last alcoholic drink, triglycerides are well controlled. Rare adverse effect of metformin & statin is acute pancreatitis. 3. Diet: NPO. 4. Activity: Ambulate, up to chair. 5. Constipation: dulcolax supp as needed. 6. DVT prophylaxis: ambulate. 7. CODE STATUS: FULL. Anticipate discharge over the weekend as lipase trends down, pain controlled, tolerating oral meds & diet. - Mortality Measure Prognosis:: Good
[2020-05-13] MEDS: Lactated Ringers 1,000 ML IV SCH ×4 (00:49→16:34)
[2020-05-13] MEDS: Ketorolac 30 MG/ML SDV IVPUSH SCH ×4 (02:00→20:10)
[2020-05-13] MEDS: Acetaminophen 650 MG Supp RECTAL SCH ×4 (02:02→20:22)
[2020-05-13] MEDS: Pantoprazole 40 MG Vial IVPUSH SCH ×2 (08:49→20:21)
[2020-05-13] MEDS: cycloSPORINE Ophth Drops U/D Box of 30 EYEBOTH SCH ×2 (08:57→20:11)
[2020-05-13] MEDS ORDERED: Sodium Phosphate,Monobasic/Sodium Phosphate,Dibasic Enema 133 ML Bottle RECTAL ONE (10:22)
[2020-05-13] MEDS: DULoxetine 60 MG Cap PO SCH (11:57)
[2020-05-13] MEDS: Gabapentin 600 MG Tab PO SCH ×3 (11:59→20:21)
[2020-05-13] MEDS ORDERED: Aluminum Hydroxide/Magnesium Hydroxide Susp 30 ML Cup PO STA (14:20)
--- NOTE | 2020-05-13 18:13 | HP ---
ADMISSION DATE: 05/12/2020 MEDICAL PROBLEM: Acute pancreatitis. HISTORY: Ck Cruz is a 60-year-old male admitted on 05/11/2020, presented with classical complicated epigastric pain. CT scan revealed pancreatitis, head of pancreas, without complicating processes. Had a moderately elevated white count, amylase of 1297. He has been on early doses of Dilaudid, now IV doses of Toradol. He is getting 250 mL of IV fluids, and clear liquids. The pain, which had been 10/10, now 4/10. Has had some reluctant stools. Has passed some " stools." Pain is much better. PHYSICAL EXAMINATION: VITAL SIGNS: 1.88 mm, 157.652 kg, 37.7, 78, blood pressure 131/72, mean blood pressure 72, respirations 18, O2 saturation 94% on room air. GENERAL: Appears comfortable. HEENT: Mouth and oropharynx clear. NECK: Benign. Thyroid is small. CHEST: On auscultation, clear all lung ponce. HEART: On auscultation, no ectopy or murmur. ABDOMEN: Much less tender. ASSESSMENT: Acute pancreatitis. PLAN: We will increase to full liquids, we will add Fleet Enema and reduce his IV fluids to 100 mL, expect a short-term hospital stay. /[id number] YISSEL/HARSHAD
[2020-05-14] MEDS: Ketorolac 30 MG/ML SDV IVPUSH SCH ×4 (02:31→20:24)
[2020-05-14] MEDS: Lactated Ringers 1,000 ML IV SCH (02:31)
[2020-05-14] MEDS: Acetaminophen 650 MG Supp RECTAL SCH ×4 (02:33→20:29)
[2020-05-14] MEDS: Pantoprazole 40 MG Vial IVPUSH SCH ×2 (08:14→20:28)
[2020-05-14] MEDS: DULoxetine 60 MG Cap PO SCH (08:15)
[2020-05-14] MEDS: Gabapentin 600 MG Tab PO SCH ×3 (08:27→20:28)
[2020-05-14] MEDS: cycloSPORINE Ophth Drops U/D Box of 30 EYEBOTH SCH ×2 (08:28→20:28)
--- NOTE | 2020-05-14 10:59 | PN ---
DATE SEEN: 05/14/2020 SUBJECTIVE: Ck Cruz is a 60-year-old male admitted with acute episode of pancreatitis. Had laboratory evidence with elevated lipase, which has fallen from 1297 to 997, on . CT revealed moderate pancreatic head pancreatitis without pathological findings. White count had fallen from 10.9, 10.3 to 7.9, hemoglobin 13.2, 12.6, to 11.8. Feeling much better. Little bit quizzical about advancing his diet. Had a bout of discomfort, reduce diet. Feels better today. Had a good BM yesterday, none today. LABORATORY STUDIES: None. OBJECTIVE: VITAL SIGNS: 36.7, 74, 124/78, 16, and 97%. GENERAL: Appears comfortable. NECK: Benign. Thyroid small. CHEST: On auscultation, clear in all lung ponce. HEART: On auscultation, soft murmur, aortic root. ABDOMEN: Rotund. No palpable masses or tenderness. ASSESSMENT: Acute pancreatitis. PLAN: We will discontinue IV fluids, switch to soft diet, close observation. Discharged home tomorrow likely. /[id number] YISSEL/HARSHAD
[2020-05-14] MEDS: Sodium Chloride 0.9% 10 ML Syringe FLUSH PRN (20:27)
[2020-05-15] MEDS: Ketorolac 30 MG/ML SDV IVPUSH SCH ×3 (02:55→10:29)
[2020-05-15] MEDS: Acetaminophen 650 MG Supp RECTAL SCH ×2 (02:55→08:28)
[2020-05-15] MEDS: Gabapentin 600 MG Tab PO SCH (08:26)
[2020-05-15] MEDS: DULoxetine 60 MG Cap PO SCH (08:27)
[2020-05-15] MEDS: cycloSPORINE Ophth Drops U/D Box of 30 EYEBOTH SCH (08:49)
[2020-05-15 08:53] VITALS: BP 127/62; PULSE 69
[2020-05-15] MEDS: Pantoprazole 40 MG Vial IVPUSH SCH (10:29)
[2020-05-16] MEDS ORDERED: Pantoprazole 40 MG Tab.CR PO SCH (06:00)
--- NOTE | 2020-05-16 08:27 | DISCH ---
DISCHARGE DATE: 05/15/2020 DIAGNOSIS: Acute pancreatitis. HISTORY OF PRESENT ILLNESS: Ck Cruz is a 60-year-old male admitted through [facility] ER. He presented with a 2-day history of problematic increasing complicated abdominal pain. Strongly suspicious for pancreatitis. He has had a previous laparoscopic cholecystectomy and hernia repair. No provoking factors of consequence, triglyceride status not known, minimal alcohol consumption. Pain was manageable. Please see admitting history and physical. LABORATORY STUDIES: Of significance, white count 10,900, reduced to 7.9, hemoglobin 13.2 to 11.8. Lipase fell from 1297 to 997 to 464, normal less than 400 on 05/13/2020. Diet was advanced slowly. Pain was controlled initially with IV Dilaudid, IV Toradol. The patient did well. Had been on IV Protonix for acid reduction throughout his stay. At the time of discharge, he was tolerating a soft diet, pain was minimal, having stools routinely, and comfortable with discharge home. Discharge home medications will include Cymbalta 60 mg 1 p.o. daily, Neurontin 600 mg t.i.d., in addition of pantoprazole 40 mg orally. Dietary restrictions and limitations to surgical procedures are none. CONSULTATION: None. 45 minutes spent in discharge exam and discharge of patient. /[id number] 1200 YISSEL/HARSHAD
== END 2020-05-15 12:26 | disposition home or self-care (01) | DRG 439 ==
LOC: FB.ED 22:22 → FB.MS 05-12 00:22
PROVIDERS: ADMIT Emergency Medicine; ATTEND Family Medicine
DX: K85.90 Acute pancreatitis without necrosis or infection, unspecified (principal); Z68.41 Body mass index [BMI] 40.0-44.9, adult; E66.01 Morbid (severe) obesity due to excess calories; K21.9 Gastro-esophageal reflux disease without esophagitis; E78.5 Hyperlipidemia, unspecified; K59.00 Constipation, unspecified; K58.9 Irritable bowel syndrome, unspecified; M19.90 Unspecified osteoarthritis, unspecified site; G89.29 Other chronic pain; M54.9 Dorsalgia, unspecified; Z20.822 Contact with and (suspected) exposure to COVID-19; E78.00 Pure hypercholesterolemia, unspecified; H54.7 Unspecified visual loss; H91.90 Unspecified hearing loss, unspecified ear; Z51.81 Encounter for therapeutic drug level monitoring; G47.30 Sleep apnea, unspecified; F41.9 Anxiety disorder, unspecified; F32.9 Major depressive disorder, single episode, unspecified; J30.9 Allergic rhinitis, unspecified; E11.9 Type 2 diabetes mellitus without complications; Z90.49 Acquired absence of other specified parts of digestive tract; Z88.8 Allergy status to other drugs, medicaments and biological substances; Z79.899 Other long term (current) drug therapy; Z79.84 Long term (current) use of oral hypoglycemic drugs; Z87.442 Personal history of urinary calculi; Z86.16 Personal history of COVID-19
CPT/HCPCS: 36415; 74177; 80048; 80053; 80061; 80307; 81001; 82962; 83690; 85025; 96374; 96375; 99284; 99285-25; A9270-GY; C9113; J1170; J1815; J1885; J7030; J7120; Q9967; U0002